=== PATIENT | female | born 1950 | race Caucasian/White ===

== ENCOUNTER 2018-02-27 17:35 | Emergency (ER) | payer MEDICARE ==
[2018-02-27] MEDS ORDERED: RX INFO: IV CONTRAST WAS GIVEN 1 EACH MISC MISCELLANE PRN (19:12)
--- NOTE | 2018-02-27 19:14 | ED ---
General Adult HPI - General Chief complaint: Extremity Problem,Nontraumatic Stated complaint: +DVT Time Seen by Provider: 02/27/18 19:06 Source: patient, family, RN notes reviewed Mode of arrival: wheelchair Limitations: no limitations - History of Present Illness Initial comments: Patient is a pleasant 68-year-old female presenting to the emergency department with concern for leg swelling. Patient did have left-sided tibial plateau fracture done 3 months ago. Patient did not require surgery. Patient has noticed some swelling the last couple of days left lower leg with mild discomfort. Patient did have outpatient ultrasound today positive for DVT. Patient states she did have recent influenza and recent pneumonia. Patient still states states she has some mild dyspnea on exertion only. - Related Data Home Medications Medication Instructions Recorded Confirmed Albuterol Sulfate [Proair Hfa] 2 puff INHALATION RT-Q6H PRN 02/27/18 02/27/18 Aspirin EC [Ecotrin Low Dose] 81 mg PO DAILY 02/27/18 02/27/18 Calcium Carbonate 500 mg PO BID 02/27/18 02/27/18 Cholecalciferol (Vitamin D3) 2,000 unit PO DAILY 02/27/18 02/27/18 [Vitamin D3] Cyanocobalamin (Vitamin B-12) 2,500 mcg PO DAILY 02/27/18 02/27/18 [Vitamin B12] Ubidecarenone [Co Q-10] 100 mg PO DAILY 02/27/18 02/27/18 Vitamin C/Biotin [Hair, Skin and 1 tab PO DAILY 02/27/18 02/27/18 Nails] Previous Rx's Medication Instructions Recorded Apixaban [Eliquis] 5 mg PO BID #44 tab 02/27/18 Allergies Allergy/AdvReac Type Severity Reaction Status Date / Time No Known Allergies Allergy Verified 02/27/18 18:40 Review of Systems ROS Statement: Those systems with pertinent positive or pertinent negative responses have been documented in the HPI. ROS Other: All systems not noted in ROS Statement are negative. Constitutional: Denies: fever Eyes: Denies: eye pain ENT: Denies: ear pain Respiratory: Reports: dyspnea (Mild with exertion only) Cardiovascular: Denies: chest pain Endocrine: Reports: fatigue Gastrointestinal: Denies: abdominal pain Genitourinary: Denies: dysuria Musculoskeletal: Denies: back pain Skin: Denies: rash Neurological: Denies: headache Past Medical History Past Medical History: Pneumonia History of Any Multi-Drug Resistant Organisms: None Reported Past Surgical History: Orthopedic Surgery, Tonsillectomy, Uterine Ablation Additional Past Surgical History / Comment(s): D&C, varicose veins Past Psychological History: No Psychological Hx Reported Smoking Status: Former smoker Past Alcohol Use History: None Reported Past Drug Use History: None Reported General Exam Limitations: no limitations General appearance: alert, in no apparent distress Head exam: Present: atraumatic Eye exam: Present: normal appearance Neck exam: Present: normal inspection Respiratory exam: Present: normal lung sounds bilaterally Cardiovascular Exam: Present: regular rate, normal rhythm Expanded Peripheral pulses: 2+: Posterior Tibialis (R), Posterior Tibialis (L), Dorsalis Pedis (R), Dorsalis Pedis (L) GI/Abdominal exam: Present: soft. Absent: tenderness Extremities exam: Present: pedal edema (Minimal left lower leg/ankle region), calf tenderness (Minimal left calf.) Neurological exam: Present: alert Psychiatric exam: Present: normal affect, normal mood Skin exam: Present: normal color Course Vital Signs 02/27/18 02/27/18 17:42 20:30 Temperature 98.6 F 97.7 F Pulse Rate 72 75 Respiratory 18 16 Rate Blood Pressure 179/92 144/75 O2 Sat by Pulse 96 100 Oximetry EKG Findings - EKG Comments: EKG Findings:: Normal sinus rhythm 66. IL 142. QRS 84. QT 386. QTc 404. Normal axis. Normal QRS. No acute ST change. Medical Decision Making - Medical Decision Making Patient reevaluated and updated. Case was discussed with Dr. Hung who is okay with discharge and either Xarelto or elquis - Lab Data Result diagrams: 02/27/18 19:23 02/27/18 19:23 Lab Results 02/27/18 02/27/18 02/27/18 Range/Units 19:23 19:23 19:23 WBC 8.3 (3.8-10.6) k/uL RBC 4.51 (3.80-5.40) m/uL Hgb 12.8 (11.4-16.0) gm/dL Hct 40.2 (34.0-46.0) % MCV 89.2 (80.0-100.0) fL MCH 28.4 (25.0-35.0) pg MCHC 31.9 (31.0-37.0) g/dL RDW 13.3 (11.5-15.5) % Plt Count 232 (150-450) k/uL Neutrophils % 72 % Lymphocytes % 20 % Monocytes % 5 % Eosinophils % 2 % Basophils % 0 % Neutrophils # 6.0 (1.3-7.7) k/uL Lymphocytes # 1.7 (1.0-4.8) k/uL Monocytes # 0.4 (0-1.0) k/uL Eosinophils # 0.2 (0-0.7) k/uL Basophils # 0.0 (0-0.2) k/uL PT (9.0-12.0) sec INR (<1.2) APTT (22.0-30.0) sec Sodium 143 (137-145) mmol/L Potassium 3.8 (3.5-5.1) mmol/L Chloride 105 (98-107) mmol/L Carbon Dioxide 26 (22-30) mmol/L Anion Gap 12 mmol/L BUN 11 (7-17) mg/dL Creatinine 0.67 (0.52-1.04) mg/dL Est GFR (CKD-EPI)AfAm >90 (>60 ml/min/1.73 sqM) Est GFR (CKD-EPI)NonAf >90 (>60 ml/min/1.73 sqM) Glucose 101 H (74-99) mg/dL Calcium 9.6 (8.4-10.2) mg/dL Total Bilirubin 0.7 (0.2-1.3) mg/dL AST 17 (14-36) U/L ALT 28 (9-52) U/L Alkaline Phosphatase 82 (38-126) U/L Total Creatine Kinase 31 (30-135) U/L CK-MB (CK-2) 0.8 (0.0-2.4) ng/mL CK-MB (CK-2) Rel Index 2.6 Troponin I <0.012 (0.000-0.034) ng/mL Total Protein 6.7 (6.3-8.2) g/dL Albumin 4.1 (3.5-5.0) g/dL 02/27/18 Range/Units 19:23 WBC (3.8-10.6) k/uL RBC (3.80-5.40) m/uL Hgb (11.4-16.0) gm/dL Hct (34.0-46.0) % MCV (80.0-100.0) fL MCH (25.0-35.0) pg MCHC (31.0-37.0) g/dL RDW (11.5-15.5) % Plt Count (150-450) k/uL Neutrophils % % Lymphocytes % % Monocytes % % Eosinophils % % Basophils % % Neutrophils # (1.3-7.7) k/uL Lymphocytes # (1.0-4.8) k/uL Monocytes # (0-1.0) k/uL Eosinophils # (0-0.7) k/uL Basophils # (0-0.2) k/uL PT 9.4 (9.0-12.0) sec INR 0.9 (<1.2) APTT 20.2 L (22.0-30.0) sec Sodium (137-145) mmol/L Potassium (3.5-5.1) mmol/L Chloride (98-107) mmol/L Carbon Dioxide (22-30) mmol/L Anion Gap mmol/L BUN (7-17) mg/dL Creatinine (0.52-1.04) mg/dL Est GFR (CKD-EPI)AfAm (>60 ml/min/1.73 sqM) Est GFR (CKD-EPI)NonAf (>60 ml/min/1.73 sqM) Glucose (74-99) mg/dL Calcium (8.4-10.2) mg/dL Total Bilirubin (0.2-1.3) mg/dL AST (14-36) U/L ALT (9-52) U/L Alkaline Phosphatase (38-126) U/L Total Creatine Kinase (30-135) U/L CK-MB (CK-2) (0.0-2.4) ng/mL CK-MB (CK-2) Rel Index Troponin I (0.000-0.034) ng/mL Total Protein (6.3-8.2) g/dL Albumin (3.5-5.0) g/dL - Radiology Data Radiology results: report reviewed (Ultrasound positive for DVT, computed tomography scan of the chest shows no evidence of pulmonary embolism.) Disposition Clinical Impression: Deep vein thrombosis of lower extremity Disposition: HOME SELF-CARE Condition: Stable Instructions: Deep Venous Thrombosis (ED) Additional Instructions: Please start further anticoagulation medication in the morning. Please follow- up with primary care physician in the next day or 2 for recheck. Return for chest pain, difficulty breathing, worsening symptoms or other concerns. Prescriptions: Apixaban [Eliquis] 5 mg PO BID #44 tab Is patient prescribed a controlled substance at d/c from ED?: No Referrals: Yuri Almendarez DO [Primary Care Provider] - 1-2 days Time of Disposition: 21:06
[2018-02-27 19:39] LABS: Basophils % (A) 0 %; Eosinophils # (A) 0.2 k/uL (0-0.7); Eosinophils % (A) 2 %; HCT 40.2 % (34.0-46.0); HGB 12.8 gm/dL (11.4-16.0); Lymphocytes # (A) 1.7 k/uL (1.0-4.8); Lymphocytes % (A) 20 %; MCH 28.4 pg (25.0-35.0); MCHC 31.9 g/dL (31.0-37.0); MCV 89.2 fL (80.0-100.0); Monocytes # (A) 0.4 k/uL (0-1.0); Monocytes % (A) 5 %; Neutrophils % (A) 72 %; Platelet Count 232 k/uL (150-450); RBC 4.51 m/uL (3.80-5.40); RDW 13.3 % (11.5-15.5); WBC 8.3 k/uL (3.8-10.6)
[2018-02-27 19:48] LABS: ALT 28 U/L (9-52); AST 17 U/L (14-36); Albumin 4.1 g/dL (3.5-5.0); Alkaline Phosphatase 82 U/L (38-126); Anion Gap 12 mmol/L; Blood Urea Nitrogen 11 mg/dL (7-17); Calcium 9.6 mg/dL (8.4-10.2); Carbon Dioxide 26 mmol/L (22-30); Chloride 105 mmol/L (98-107); Glucose 101 mg/dL (74-99); Potassium 3.8 mmol/L (3.5-5.1); Sodium 143 mmol/L (137-145); Total Bilirubin 0.7 mg/dL (0.2-1.3); Total Protein 6.7 g/dL (6.3-8.2)
[2018-02-27 19:53] LABS: Creatine Kinase 31 U/L (30-135)
[2018-02-27 20:04] LABS: INR 0.9 (<1.2); Prothrombin Time 9.4 sec (9.0-12.0)
[2018-02-27 20:06] LABS: Creatine Kinase MB 0.8 ng/mL (0.0-2.4); Partial Thromboplastin Time 20.2 sec (22.0-30.0); Troponin I <0.012 ng/mL (0.000-0.034)
[2018-02-27 20:32] VITALS: TEMP 97.7
--- NOTE | 2018-02-27 20:41 | CT ---
EXAMINATION TYPE: CT angio chest DATE OF EXAM: 02/27/2018 8:30 PM COMPARISON: NONE HISTORY: Shortness of breath with known DVT in legs CT DLP: 320.9 mGycm Automated exposure control for dose reduction was used. CONTRAST: CTA scan of the thorax is performed with IV Contrast, patient injected with 69 mL of Isovue 370, pulm onary embolism protocol. There are 3-D post processed images.. FINDINGS: The lungs are clear of infiltrate. There is no sign of a pulmonary mass. There is no pleural effusion . Heart size is normal. There is no pericardial effusion. There is normal contrast opacification of t he pulmonary arteries. I see no filling defect. There is no sign of aortic aneurysm or dissection. Th ere are no hilar masses. There is no mediastinal adenopathy. There is mild spurring in the thoracic s pine. IMPRESSION: NORMAL CT ANGIOGRAM OF THE CHEST. NO EVIDENCE OF PULMONARY EMBOLISM.
[2018-02-27] MEDS ORDERED: APIXABAN 5 MG TAB PO STA (21:05)
[2018-02-27 21:21] VITALS: BP 152/76; PULSE 79; RESP 18
== END 2018-02-27 21:35 | disposition home or self-care (01) ==
LOC: EC 17:35
DX: I82.402 Acute embolism and thrombosis of unspecified deep veins of left lower extremity (principal); R06.00 Dyspnea, unspecified; Z87.01 Personal history of pneumonia (recurrent); Z87.891 Personal history of nicotine dependence; Z98.890 Other specified postprocedural states; Z79.82 Long term (current) use of aspirin; Z79.899 Other long term (current) drug therapy
CPT/HCPCS: 36415; 93005; 80053; 82550; 82553; 84484; 85025; 85610; 85730; 71275; 99284; Q9967

== ENCOUNTER → 2018-02-27 | Outpatient (CLI) | payer MEDICARE ==
--- NOTE | 2018-02-27 17:30 | US ---
EXAMINATION TYPE: US venous doppler duplex LE LT DATE OF EXAM: 02/27/2018 5:14 PM COMPARISON: NONE CLINICAL HISTORY: left lower ext, pain and swelling, M25.562. SIDE PERFORMED: Left TECHNIQUE: The lower extremity deep venous system is examined utilizing real time linear array sonog juventino with graded compression, doppler sonography and color-flow sonography. VESSELS IMAGED: External Iliac Vein (EIV) Common Femoral Vein Deep Femoral Vein Greater Saphenous Vein * Femoral Vein Popliteal Vein Small Saphenous Vein * Proximal Calf Veins (* superficial vessels) Left Leg: Positive for DVT, starting at the distal fem vein and through the pop proximal and mid por tion there is non occluding DVT, with partial compressibility of vessel. There is a collateral or dup licate FV distally that is patent and compressible. IMPRESSION: There is evidence of some chronic deep venous thrombosis in the distal left femoral vein and popliteal vein.
== END | disposition home or self-care (01) ==
LOC: RADUSMAIN 16:40
PROVIDERS: ATTEND Orthopaedic Surgery
DX: I82.412 Acute embolism and thrombosis of left femoral vein (principal)

== ENCOUNTER → 2018-03-29 | Outpatient (CLI) | payer MEDICARE ==
--- NOTE | 2018-03-29 14:43 | XR ---
EXAMINATION TYPE: XR wrist complete LT DATE OF EXAM: 03/29/2018 CLINICAL HISTORY: pain TECHNIQUE: Frontal, lateral and oblique images of the left wrist are obtained. COMPARISON: None. FINDINGS: There is no acute fracture/dislocation evident. The joint spaces appear within normal morin its. The overlying soft tissue appears unremarkable. IMPRESSION: There is no acute fracture or dislocation seen. ICD 10 NO FRACTURE, INITIAL EVALUATION
== END | disposition home or self-care (01) ==
LOC: RADXRYALE 14:28
PROVIDERS: ATTEND Physician Assistant Medical
DX: M25.532 Pain in left wrist (principal)

== ENCOUNTER 2018-06-28 13:53 | Inpatient (IN) | payer MEDICARE ==
[2018-06-28] MEDS ORDERED: SODIUM CHLORIDE 0.9% 500 ML IV STA (14:11)
--- NOTE | 2018-06-28 14:14 | ED ---
General Adult HPI - General Chief complaint: Dizziness Stated complaint: dizziness Time Seen by Provider: 06/28/18 14:00 Source: patient, EMS, RN notes reviewed Mode of arrival: EMS Limitations: no limitations - History of Present Illness Initial comments: This is a 60-year-old female presents emergency department with past medical history significant for some recent vertigo-like symptoms. Patient states today however she comes in because she hadn't complete numbness of her right arm which lasted about 5 minutes and it then became tingly and eventually completely resolved. Patient states right after this whole event she became very weak had to sit down and could hear people talking to her but she was unable to respond to them and according to bystanders she was somewhat unresponsive to their questions though awake. Patient states that lasted a few more minutes and then completely resolved. Patient denies any headache patient denies any weakness. Patient denies any chest pain palpitations difficulty breathing [place] of breath. Patient denies any recent fever chills or cough. Patient denies abdominal pain patient denies nausea vomiting diarrhea. Currently patient states she has no symptoms. - Related Data Home Medications Medication Instructions Recorded Confirmed Aspirin EC [Ecotrin Low Dose] 81 mg PO HS 02/27/18 06/28/18 Cyanocobalamin (Vitamin B-12) 5,000 mcg PO DAILY 02/27/18 06/28/18 [Vitamin B12] Ubidecarenone [Co Q-10] 100 mg PO HS 02/27/18 06/28/18 Vitamin C/Biotin [Hair, Skin and 1 tab PO DAILY 02/27/18 06/28/18 Nails] 5Hydroxytryptophan(Oxitriptan) 200 mg PO HS 06/28/18 06/28/18 [5-Htp] Amoxic-Pot Clav 875-125Mg 1 tab PO Q12HR 06/28/18 06/28/18 [Augmentin 875-125] Ashwagandha 1 tab PO BID 06/28/18 06/28/18 Calcium Carbonate/Vitamin D3 2 tab PO BID 06/28/18 06/28/18 [Calcium 600-Vit D3 400 Tablet] Fluticasone Nasal [place] [Flonase 2 spr EA NOSTRIL DAILY 06/28/18 06/28/18 Nasal [place]] Allergies Allergy/AdvReac Type Severity Reaction Status Date / Time No Known Allergies Allergy Verified 06/28/18 14:16 Review of Systems ROS Statement: Those systems with pertinent positive or pertinent negative responses have been documented in the HPI. ROS Other: All systems not noted in ROS Statement are negative. Past Medical History Past Medical History: Deep Vein Thrombosis (DVT), Pneumonia History of Any Multi-Drug Resistant Organisms: None Reported Past Surgical History: Orthopedic Surgery, Tonsillectomy, Uterine Ablation Additional Past Surgical History / Comment(s): D&C, varicose veins Past Psychological History: No Psychological Hx Reported Smoking Status: Former smoker Past Alcohol Use History: None Reported Past Drug Use History: None Reported General Exam - General Exam Comments Initial Comments: GENERAL: Patient is well-developed and well-nourished. Patient is nontoxic and well- hydrated and is in mild distress. ENT: Neck is soft and supple. No significant lymphadenopathy is noted. Oropharynx is clear. Moist mucous membranes. Neck has full range of motion without eliciting any pain. EYES: The sclera were anicteric and conjunctiva were pink and moist. Extraocular movements were intact and pupils were equal round and reactive to light. Eyelids were unremarkable. PULMONARY: Unlabored respirations. Good breath sounds bilaterally. No audible rales rhonchi or wheezing was noted. CARDIOVASCULAR: There is a regular rate and rhythm without any murmurs gallops or rubs. ABDOMEN: Soft and nontender with normal bowel sounds. No palpable organomegaly was noted. There is no palpable pulsatile mass. SKIN: Skin is clear with no lesions or rashes and otherwise unremarkable. NEUROLOGIC: Patient is alert and oriented x3. Cranial nerves II through XII are grossly intact. Motor and sensory are also intact. Normal speech, volume and content. Symmetrical smile. MUSCULOSKELETAL: Normal extremities with adequate strength and full range of motion. No lower extremity swelling or edema. No calf tenderness. LYMPHATICS: No significant lymphadenopathy is noted PSYCHIATRIC: Normal psychiatric evaluation. Normal interpersonal interactions appears functionally intact in deals appropriately with others. No signs of depression. No signs of anxiety. Limitations: no limitations Course Vital Signs 06/28/18 13:55 Temperature 97.8 F Pulse Rate 68 Respiratory 20 Rate Blood Pressure 165/87 O2 Sat by Pulse 96 Oximetry Medical Decision Making - Medical Decision Making EKG shows normal sinus rhythm at 72 bpm NV interval is on a 62 QRS is 88 QT interval 380 QTC is 416. Patient's EKG shows no ST segment elevation or depression or T wave abnormalities are noted. Patient's CT of the brain shows no acute abnormality. Chest x-ray shows no acute abnormality - Lab Data Result diagrams: 06/28/18 14:04 06/28/18 14:04 Lab Results 06/28/18 06/28/18 06/28/18 Range/Units 14:04 14:04 14:04 WBC 6.3 (3.8-10.6) k/uL RBC 4.54 (3.80-5.40) m/uL Hgb 13.2 (11.4-16.0) gm/dL Hct 41.5 (34.0-46.0) % MCV 91.4 (80.0-100.0) fL MCH 29.0 (25.0-35.0) pg MCHC 31.8 (31.0-37.0) g/dL RDW 12.8 (11.5-15.5) % Plt Count 230 (150-450) k/uL Neutrophils % 71 % Lymphocytes % 22 % Monocytes % 5 % Eosinophils % 1 % Basophils % 0 % Neutrophils # 4.5 (1.3-7.7) k/uL Lymphocytes # 1.4 (1.0-4.8) k/uL Monocytes # 0.3 (0-1.0) k/uL Eosinophils # 0.1 (0-0.7) k/uL Basophils # 0.0 (0-0.2) k/uL PT (9.0-12.0) sec INR (<1.2) APTT (22.0-30.0) sec Sodium 142 (137-145) mmol/L Potassium 4.5 (3.5-5.1) mmol/L Chloride 111 H (98-107) mmol/L Carbon Dioxide 20 L (22-30) mmol/L Anion Gap 11 mmol/L BUN 13 (7-17) mg/dL Creatinine 0.70 (0.52-1.04) mg/dL Est GFR (CKD-EPI)AfAm >90 (>60 ml/min/1.73 sqM) Est GFR (CKD-EPI)NonAf 89 (>60 ml/min/1.73 sqM) Glucose 99 (74-99) mg/dL Calcium 9.8 (8.4-10.2) mg/dL Total Bilirubin 0.8 (0.2-1.3) mg/dL AST 19 (14-36) U/L ALT 26 (9-52) U/L Alkaline Phosphatase 92 (38-126) U/L Total Creatine Kinase 40 (30-135) U/L CK-MB (CK-2) 0.8 (0.0-2.4) ng/mL CK-MB (CK-2) Rel Index 2.0 Troponin I <0.012 (0.000-0.034) ng/mL Total Protein 7.1 (6.3-8.2) g/dL Albumin 4.4 (3.5-5.0) g/dL Urine Color Urine Appearance (Clear) Urine pH (5.0-8.0) Ur Specific [place] (1.001-1.035) Urine Protein (Negative) Urine Glucose (UA) (Negative) Urine Ketones (Negative) Urine Blood (Negative) Urine Nitrite (Negative) Urine Bilirubin (Negative) Urine Urobilinogen (<2.0) mg/dL Ur Leukocyte Esterase (Negative) 06/28/18 06/28/18 Range/Units 14:04 14:18 WBC (3.8-10.6) k/uL RBC (3.80-5.40) m/uL Hgb (11.4-16.0) gm/dL Hct (34.0-46.0) % MCV (80.0-100.0) fL MCH (25.0-35.0) pg MCHC (31.0-37.0) g/dL RDW (11.5-15.5) % Plt Count (150-450) k/uL Neutrophils % % Lymphocytes % % Monocytes % % Eosinophils % % Basophils % % Neutrophils # (1.3-7.7) k/uL Lymphocytes # (1.0-4.8) k/uL Monocytes # (0-1.0) k/uL Eosinophils # (0-0.7) k/uL Basophils # (0-0.2) k/uL PT 9.8 (9.0-12.0) sec INR 1.0 (<1.2) APTT 22.3 (22.0-30.0) sec Sodium (137-145) mmol/L Potassium (3.5-5.1) mmol/L Chloride (98-107) mmol/L Carbon Dioxide (22-30) mmol/L Anion Gap mmol/L BUN (7-17) mg/dL Creatinine (0.52-1.04) mg/dL Est GFR (CKD-EPI)AfAm (>60 ml/min/1.73 sqM) Est GFR (CKD-EPI)NonAf (>60 ml/min/1.73 sqM) Glucose (74-99) mg/dL Calcium (8.4-10.2) mg/dL Total Bilirubin (0.2-1.3) mg/dL AST (14-36) U/L ALT (9-52) U/L Alkaline Phosphatase (38-126) U/L Total Creatine Kinase (30-135) U/L CK-MB (CK-2) (0.0-2.4) ng/mL CK-MB (CK-2) Rel Index Troponin I (0.000-0.034) ng/mL Total Protein (6.3-8.2) g/dL Albumin (3.5-5.0) g/dL Urine Color Colorless Urine Appearance Clear (Clear) Urine pH 6.0 (5.0-8.0) Ur Specific [place] 1.003 (1.001-1.035) Urine Protein Negative (Negative) Urine Glucose (UA) Negative (Negative) Urine Ketones Negative (Negative) Urine Blood Negative (Negative) Urine Nitrite Negative (Negative) Urine Bilirubin Negative (Negative) Urine Urobilinogen <2.0 (<2.0) mg/dL Ur Leukocyte Esterase Negative (Negative) Disposition Clinical Impression: TIA (transient ischemic attack) Disposition: ADMITTED IP TO THIS HOSP Referrals: Yuri Almendarez DO [Primary Care Provider] - 1-2 days Time of Disposition: 15:25
[2018-06-28 14:35] LABS: Basophils % (A) 0 %; Eosinophils # (A) 0.1 k/uL (0-0.7); Eosinophils % (A) 1 %; HCT 41.5 % (34.0-46.0); HGB 13.2 gm/dL (11.4-16.0); Lymphocytes # (A) 1.4 k/uL (1.0-4.8); Lymphocytes % (A) 22 %; MCHC 31.8 g/dL (31.0-37.0); MCV 91.4 fL (80.0-100.0); Mean Platelet Volume 7.4; Monocytes # (A) 0.3 k/uL (0-1.0); Monocytes % (A) 5 %; Neutrophils # (A) 4.5 k/uL (1.3-7.7); Neutrophils % (A) 71 %; Platelet Count 230 k/uL (150-450); RBC 4.54 m/uL (3.80-5.40); RDW 12.8 % (11.5-15.5); WBC 6.3 k/uL (3.8-10.6)
[2018-06-28 14:51] LABS: ALT 26 U/L (9-52); AST 19 U/L (14-36); Albumin 4.4 g/dL (3.5-5.0); Alkaline Phosphatase 92 U/L (38-126); Anion Gap 11 mmol/L; Blood Urea Nitrogen 13 mg/dL (7-17); Calcium 9.8 mg/dL (8.4-10.2); Carbon Dioxide 20 mmol/L (22-30); Chloride 111 mmol/L (98-107); Glucose 99 mg/dL (74-99); Potassium 4.5 mmol/L (3.5-5.1); Sodium 142 mmol/L (137-145); Total Bilirubin 0.8 mg/dL (0.2-1.3); Total Protein 7.1 g/dL (6.3-8.2)
[2018-06-28 14:53] LABS: Creatine Kinase 40 U/L (30-135)
[2018-06-28 14:55] LABS: Partial Thromboplastin Time 22.3 sec (22.0-30.0); Prothrombin Time 9.8 sec (9.0-12.0)
[2018-06-28 15:07] LABS: Creatine Kinase MB 0.8 ng/mL (0.0-2.4); Troponin I <0.012 ng/mL (0.000-0.034)
--- NOTE | 2018-06-28 15:09 | CT ---
EXAMINATION TYPE: CT brain wo con DATE OF EXAM: 06/28/2018 COMPARISON: None HISTORY: Dizziness CT DLP: 1053.1 mGycm Automated exposure control for dose reduction was used. FINDINGS: Ventricular system is midline. There is no acute hemorrhage or mass effect. Calvarium intact. There is mild atherosclerotic change of the intracranial vasculature. Patchy areas of low attenuation within the white matter are nonspecific. Changes of mild chronic sinusitis noted. Area of low attenuation within the external capsule may been the basis of a remote lacunar infarction . IMPRESSION: 1. No acute hemorrhage or mass effect. 2. Nonspecific patchy areas of low attenuation within the white matter. Findings may been the basis o f remote microvascular ischemia. If there is concern for acute ischemia correlate clinically and if n ecessary with MRI.
[2018-06-28 15:16] LABS: Appearance,Urine Clear (Clear); Bilirubin,Urine Negative (Negative); Blood,Urine Negative (Negative); Color,Urine Colorless; Glucose,Urine (UA) Negative (Negative); Ketones,Urine Negative (Negative); Leukocyte Esterase,Urine Negative (Negative); Nitrite,Urine Negative (Negative); Protein,Urine Negative (Negative); Specific Gravity,Urine 1.003 (1.001-1.035); Urobilinogen,Urine <2.0 mg/dL (<2.0)
[2018-06-28] MEDS ORDERED: ASPIRIN 325 MG TAB PO STA (15:27)
--- NOTE | 2018-06-28 16:17 | P.HPIM ---
History of Present Illness 60-year-old female came in with compensative numbness in the whole left arm lasted for about 5 minutes tingling sensation. Patient had an episode of confusion as well and the symptoms of not feeling well. Patient has some nonspecific symptoms. Patient denied any chest pain fever chills nausea vomiting. She was recently evaluated for bradycardia at nighttime by cardiology where she had a carotid Doppler yesterday and Dr. Singh's office, patient is supposed to get an echocardiogram as well is being evaluated as an outpatient for chronic shortness of breath denied any orthopnea or paroxysmal nocturnal dyspnea. Patient is also being evaluated as an outpatient for on and off vertigo symptoms along with tinnitus because of which she was believed to have Mnire's disease. Patient was really doesn't have any neurological symptoms. Review of Systems REVIEW OF SYSTEMS: CONSTITUTIONAL: No fever, no malaise, no fatigue. HEENT: No recent visual problems or hearing problems. Denied any sore throat. CARDIOVASCULAR: No chest pain, orthopnea, PND, no palpitations, no syncope. PULMONARY: No shortness of breath, no cough, no hemoptysis. GASTROINTESTINAL: No diarrhea, no nausea, no vomiting, no abdominal pain. Normoactive bowel sounds. NEUROLOGICAL: No headaches, no weakness, no numbness. HEMATOLOGICAL: Denies any bleeding or petechiae. GENITOURINARY: Denies any burning micturition, frequency, or urgency. MUSCULOSKELETAL/RHEUMATOLOGICAL: As mentioned above ENDOCRINE: Denies any polyuria or polydipsia. The rest of the 14-point review of systems is negative. Past Medical History Past Medical History: Deep Vein Thrombosis (DVT), Pneumonia History of Any Multi-Drug Resistant Organisms: None Reported Past Surgical History: Orthopedic Surgery, Tonsillectomy, Uterine Ablation Additional Past Surgical History / Comment(s): D&C, varicose veins Past Psychological History: No Psychological Hx Reported Smoking Status: Former smoker Past Alcohol Use History: None Reported Past Drug Use History: None Reported Medications and Allergies Home Medications Medication Instructions Recorded Confirmed Type Aspirin EC [Ecotrin Low Dose] 81 mg PO HS 02/27/18 06/28/18 History Cyanocobalamin (Vitamin B-12) 5,000 mcg PO DAILY 02/27/18 06/28/18 History [Vitamin B12] Ubidecarenone [Co Q-10] 100 mg PO HS 02/27/18 06/28/18 History Vitamin C/Biotin [Hair, Skin and 1 tab PO DAILY 02/27/18 06/28/18 History Nails] 5Hydroxytryptophan(Oxitriptan) 200 mg PO HS 06/28/18 06/28/18 History [5-Htp] Amoxic-Pot Clav 875-125Mg 1 tab PO Q12HR 06/28/18 06/28/18 History [Augmentin 875-125] Ashwagandha 1 tab PO BID 06/28/18 06/28/18 History Calcium Carbonate/Vitamin D3 2 tab PO BID 06/28/18 06/28/18 History [Calcium 600-Vit D3 400 Tablet] Fluticasone Nasal [place] [Flonase 2 spr EA NOSTRIL DAILY 06/28/18 06/28/18 History Nasal [place]] Allergies Allergy/AdvReac Type Severity Reaction Status Date / Time No Known Allergies Allergy Verified 06/28/18 14:16 Physical Exam Vitals: Vital Signs Temp Pulse Pulse Resp BP BP Pulse Ox 06/28/18 15:26 59 L 18 118/58 98 06/28/18 13:55 97.8 F 68 20 165/87 96 Intake and Output 06/28/18 06/28/18 06/28/18 06:59 14:59 22:59 Other: Weight 92.986 kg PHYSICAL EXAMINATION: GENERAL: The patient is alert and oriented x3, not in any acute distress. Well developed, well nourished. HEENT: Pupils are round and equally reacting to light. EOMI. No scleral icterus. No conjunctival pallor. Normocephalic, atraumatic. No pharyngeal erythema. No thyromegaly. CARDIOVASCULAR: S1 and S2 present. No murmurs, rubs, or gallops. PULMONARY: Chest is clear to auscultation, no wheezing or crackles. ABDOMEN: Soft, nontender, nondistended, normoactive bowel sounds. No palpable organomegaly. MUSCULOSKELETAL: No joint swelling or deformity. EXTREMITIES: No cyanosis, clubbing, or pedal edema. NEUROLOGICAL: Gross neurological examination did not reveal any focal deficits. SKIN: No rashes. Results CBC & Chem 7: 06/28/18 14:04 06/28/18 14:04 Labs: Abnormal Lab Results - Last 24 Hours (Table) 06/28/18 Range/Units 14:04 Chloride 111 H (98-107) mmol/L Carbon Dioxide 20 L (22-30) mmol/L Assessment and Plan Plan: -Tingling or numbness in the right arm with associated a brief episode of confusion. Patient will be admitted to rule out TIA lipid panel be obtained carotid Doppler was done in cardiology clinic results of which will be obtained echocardiogram will be obtained here admitted for neuro checks. [place] in neck x-ray looking for degenerative neck disease. Neurology was consulted CAT scan of the head did show some nonspecific white factor changes may need an MRI dictation of which will be left to neurology. -Vertigo probably secondary to Mnire's disease and being evaluated as an outpatient for this -History of DVT few months ago completed anticoagulation therapy after which her anti-correlation was discontinued her DVT was precipitated by musculoskeletal left leg injury: Knee injury
[2018-06-28] MEDS: AMOXIC-POT CLAV 875-125MG 1 EACH TAB PO SCH (20:38)
[2018-06-28] MEDS ORDERED: ASPIRIN 81 MG PO SCH (21:00)
[2018-06-28] MEDS: [UNRECOGNIZED DRUG - OTHER] PO SCH (22:36)
[2018-06-29 06:44] LABS: Cholesterol 209 mg/dL (<200); HDL Cholesterol 48 mg/dL (40-60); LDL Cholesterol,Calculated 144 mg/dL (0-99); Triglycerides 87 mg/dL (<150)
[2018-06-29] MEDS: AMOXIC-POT CLAV 875-125MG 1 EACH TAB PO SCH ×2 (08:25→21:27)
[2018-06-29] MEDS: CLOPIDOGREL 75 MG TAB PO SCH (08:31)
[2018-06-29] MEDS ORDERED: ASPIRIN 325 MG TAB PO SCH (09:00)
--- NOTE | 2018-06-29 09:37 | P.CRDCN ---
History of Present Illness Consult date: 06/29/18 Chief complaint: Right arm numbness History of present illness: This is a pleasant 68-year-old female patient who sees Dr. Singh in the office as an outpatient with a past medical history significant for dyslipidemia who presented to the hospital complaining of right arm numbness. 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 The symptoms lasted for about 5 units and results after that. No loss of consciousness. No symptoms of heart racing or fluttering. No chest pain or chest discomfort. The patient never had any episode like this in the past. No history of paroxysmal atrial fibrillation or diabetes or hypertension but she does have dyslipidemia. She was seen recently by Dr. Singh in the office for further evaluation off bradycardia. She just underwent within the last few days an echocardiogram as well as carotid duplex study and I just called the office to obtain a copy of them. The EKG showed sinus rhythm only. The computed tomography scan of the brain did not show any acute abnormalities besides chronic changes. No arrhythmia was noticed from overnight. The patient was seen and evaluated by the neurology service earlier today. The patient does not smoke and does not drink alcohol. No significant family history of premature coronary artery disease. Past Medical History Past Medical History: Deep Vein Thrombosis (DVT), Pneumonia Additional Past Medical History / Comment(s): "told i have a slight heart murmur ", for past month has had fogginess/slight memory issues, vertigo.rising cholesrtol level but pt trying to lower it by diet. fall, w/ broken rt leg in dec 2017 came down with influenza b then pne and by the time she felt well wnough to get up she ended up with dvt rt leg History of Any Multi-Drug Resistant Organisms: None Reported Past Surgical History: Orthopedic Surgery, Tonsillectomy, Uterine Ablation Additional Past Surgical History / Comment(s): D&C(hx of heavy bleeding) and leep procedure varicose veins stripping Additional Past Anesthesia/Blood Transfusion Reaction / Comment(s): blood transfusion in past-no reaction to it Smoking Status: Former smoker - Past Family History Mother Family Medical History: Congestive Heart Failure (CHF), Hypertension Father Family Medical History: COPD Additional Family Medical History / Comment(s): 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 Medications and Allergies Home Medications Medication Instructions Recorded Confirmed Type Aspirin EC [Ecotrin Low Dose] 81 mg PO HS 02/27/18 06/28/18 History Cyanocobalamin (Vitamin B-12) 5,000 mcg PO DAILY 02/27/18 06/28/18 History [Vitamin B12] Ubidecarenone [Co Q-10] 100 mg PO HS 02/27/18 06/28/18 History Vitamin C/Biotin [Hair, Skin and 1 tab PO DAILY 02/27/18 06/28/18 History Nails] 5Hydroxytryptophan(Oxitriptan) 200 mg PO HS 06/28/18 06/28/18 History [5-Htp] Amoxic-Pot Clav 875-125Mg 1 tab PO Q12HR 06/28/18 06/28/18 History [Augmentin 875-125] Ashwagandha 1 tab PO BID 06/28/18 06/28/18 History Calcium Carbonate/Vitamin D3 2 tab PO BID 06/28/18 06/28/18 History [Calcium 600-Vit D3 400 Tablet] Fluticasone Nasal [place] [Flonase 2 spr EA NOSTRIL DAILY 06/28/18 06/28/18 History Nasal [place]] Allergies Allergy/AdvReac Type Severity Reaction Status Date / Time No Known Allergies Allergy Verified 06/28/18 14:16 Physical Exam Vitals: Vital Signs Temp Pulse Pulse Resp BP BP Pulse Ox 06/29/18 04:00 98.0 F 55 L 16 127/61 96 06/29/18 03:18 16 06/29/18 00:00 97.9 F 60 16 112/60 96 06/28/18 20:00 96.8 F L 70 16 143/73 95 06/28/18 16:26 96.9 F L 72 16 147/69 98 06/28/18 15:26 59 L 18 118/58 98 06/28/18 13:55 97.8 F 68 20 165/87 96 Intake and Output 06/28/18 06/29/18 06/29/18 22:59 06:59 14:59 Intake Total 240 240 Balance 240 240 Intake: Oral 240 240 Other: Voiding Method Toilet # Voids 1 1 Weight 92 kg - Constitutional General appearance: no acute distress - Respiratory Respiratory: bilateral: CTA - Cardiovascular Rhythm: regular Heart sounds: normal: S1, S2 Results 06/28/18 14:04 06/28/18 14:04 Cardiac Enzymes 06/28/18 06/28/18 Range/Units 14:04 14:04 AST 19 (14-36) U/L CK-MB (CK-2) 0.8 (0.0-2.4) ng/mL Troponin I <0.012 (0.000-0.034) ng/mL Coagulation 06/28/18 Range/Units 14:04 PT 9.8 (9.0-12.0) sec APTT 22.3 (22.0-30.0) sec Lipids 06/29/18 Range/Units 06:00 Triglycerides 87 (<150) mg/dL Cholesterol 209 H (<200) mg/dL HDL Cholesterol 48 (40-60) mg/dL CBC 06/28/18 Range/Units 14:04 WBC 6.3 (3.8-10.6) k/uL RBC 4.54 (3.80-5.40) m/uL Hgb 13.2 (11.4-16.0) gm/dL Hct 41.5 (34.0-46.0) % Plt Count 230 (150-450) k/uL Comprehensive Metabolic Panel 06/28/18 Range/Units 14:04 Sodium 142 (137-145) mmol/L Potassium 4.5 (3.5-5.1) mmol/L Chloride 111 H (98-107) mmol/L Carbon Dioxide 20 L (22-30) mmol/L BUN 13 (7-17) mg/dL Creatinine 0.70 (0.52-1.04) mg/dL Glucose 99 (74-99) mg/dL Calcium 9.8 (8.4-10.2) mg/dL AST 19 (14-36) U/L ALT 26 (9-52) U/L Alkaline Phosphatase 92 (38-126) U/L Total Protein 7.1 (6.3-8.2) g/dL Albumin 4.4 (3.5-5.0) g/dL Current Medications Generic Name Dose Route Start Last Admin Trade Name Freq PRN Reason Stop Dose Admin Amoxicillin/Clavulanate Potassium 1 each 06/28/18 21:00 06/29/18 08:25 Augmentin 875-125 PO Not Given Q12HR PITO Clopidogrel Bisulfate 75 mg 06/29/18 09:00 06/29/18 08:31 Plavix PO 75 mg DAILY PITO Administration Oxitriptan 200mg 200 mg 06/28/18 21:00 06/28/18 22:36 PO Not Given HS PITO Intake and Output 06/28/18 06/29/18 06/29/18 22:59 06:59 14:59 Intake Total 240 240 Balance 240 240 Intake: Oral 240 240 Other: Voiding Method Toilet # Voids 1 1 Weight 92 kg 06/28/18 14:04 06/28/18 14:04 Assessment and Plan Assessment: Assessment #1 an episode of TIA. #2 dyslipidemia Plan #1 follow-up on the echocardiogram and follow-up on the carotid duplex study #2 if the carotid duplex study did not show any hemodynamically significant stenosis I would recommend obtaining a KERRY to rule out any cardiac source of embolization. 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 Thank you for allowing us participate in her care and we will continue following up with her
--- NOTE | 2018-06-29 10:26 | MR ---
MR brain without contrast HISTORY: TIA Multiplanar multisequence imaging through the brain and correlated prior CT brain 06/28/2018 There is no restricted diffusion. There is no hemorrhage or hydrocephalus. Brain volume is age approp riate. Pituitary, corpus callosum, cervical medullary junction, cerebellopontine angles are normal. T here are normal vascular flow voids. The orbits show symmetric appearance. Some inflammatory changes present in the right frontal sinus. Fluid and scattered hyperintensities are present within the periventricular, subcortical, juxtacortic al, deep white matter. Largest lesion in the left frontal deep white matter measures 8 mm on axial im age 21. Right frontal lesion on axial image 20 in the right frontal white matter measures [address] 40-50 lesions are present. IMPRESSION: Nonspecific white matter demyelination. Findings may represent chronic small vessel ische ted, correlate. No acute or subacute abnormality evident within the brain. Right frontal sinus diseas e.
--- NOTE | 2018-06-29 12:09 | ECHOF ---
Referral Reason:TIA MEASUREMENTS -------- HEIGHT: 177.8 cm WEIGHT: 91.6 kg BP: 127/61 IVSd: 1.0 cm (0.6 - 1.1) LVIDd: 4.8 cm (3.9 - 5.3) LVPWd: 1.4 cm (0.6 - 1.1) IVSs: 2.0 cm LVIDs: 1.9 cm LVPWs: 1.8 cm Ao Diam: 3.6 cm (2.0 - 3.7) AV Cusp: 2.0 cm (1.5 - 2.6) LA Diam: 2.7 cm (2.7 - 3.8) MV EXCURSION: 14.837 mm (> 18.000) MV EF SLOPE: 106 mm/s (70 - 150) EPSS: 0.5 cm MV E Silverio: 0.80 m/s MV DecT: 244 ms MV A Silverio: 0.86 m/s MV E/A Ratio: 0.93 RAP: 5.00 mmHg RVSP: 11.68 mmHg FINDINGS -------- Sinus rhythm. This was a technically adequate study. The left ventricular size is normal. There is mild concentric left ventricular hypertrophy. Overa ll left ventricular systolic function is normal with, an EF between 55 - 60 %. The right ventricle is normal in size and function. The left atrium is normal in size. The right atrium is normal in size. The aortic valve is trileaflet, and appears structurally normal. No aortic stenosis or regurgitation. The mitral valve leaflets are mildly thickened. Mild mitral regurgitation is present. Trace tricuspid regurgitation present. There is no evidence of pulmonary hypertension. The right ventricular systolic pressure, as measured by Doppler, is 11.68mmHg. There is no pulmonic regurgitation present. The aortic root size is normal. There is no pericardial effusion. CONCLUSIONS -------- 1. Sinus rhythm. 2. This was a technically adequate study. 3. The left ventricular size is normal. 4. There is mild concentric left ventricular hypertrophy. 5. Overall left ventricular systolic function is normal with, an EF between 55 - 60 %. 6. The left atrium is normal in size. 7. The aortic valve is trileaflet, and appears structurally normal. No aortic stenosis or regurgitati on. 8. The mitral valve leaflets are mildly thickened. 9. Mild mitral regurgitation is present. 10. Trace tricuspid regurgitation present. 11. There is no evidence of pulmonary hypertension. 12. There is no pulmonic regurgitation present. 13. The aortic root size is normal. 14. There is no pericardial effusion. [employer] OPERATOR: Brissa Calvin RDCS
--- NOTE | 2018-06-29 13:57 | XR ---
EXAMINATION TYPE: XR chest 2V DATE OF EXAM: 06/28/2018 COMPARISON: NONE HISTORY: Shortness of breath TECHNIQUE: Frontal and lateral views of the chest are obtained. FINDINGS: Scattered senescent parenchymal changes noted. Hyperinflation compatible with COPD. No evidence for infiltrate. No evidence for atelectasis. Heart size is stable. Mediastinal structures are stable and grossly unremarkable. No evidence for hilar prominence. Degenerative changes dorsal spine. IMPRESSION: 1. No evidence for acute pulmonary disease.
--- NOTE | 2018-06-29 14:52 | P.PN ---
Subjective 68-year-old female came with symptoms of right hand tingling numbness probably secondary to cervical degenerative disc disease, patient had an MRI because of the other associated symptoms including transient episode of amnesia, neurology evaluated the patient MRA showed some nonspecific white matter ischemic changes because of which there is a concern of embolic phenomenon and atrial fibrillation echocardiogram did not show any significant abnormality intraventricular thrombus, patient will undergo transesophageal echocardiogram tomorrow, possible Holter monitor as an outpatient. Constitutional: Denied any fatigue denied any fever. Cardio vascular: denied any chest pain, palpitations Gastrointestinal denied any nausea vomiting Pulmonary: Denied any shortness of breath cough Neurologic denied any new focal deficits Objective - Vital Signs Vital signs: Vital Signs Temp 97.9 F 06/29/18 12:00 Pulse 72 06/29/18 12:00 Resp 16 06/29/18 12:00 BP 146/78 06/29/18 12:00 Pulse Ox 98 06/29/18 12:00 Intake & Output 06/28/18 06/29/18 06/29/18 18:59 06:59 18:59 Intake Total 240 480 Balance 240 480 Weight 92.986 kg 92 kg Intake: Oral 240 480 Other: Voiding Method Toilet Toilet # Voids 1 1 - Exam PHYSICAL EXAMINATION: GENERAL: The patient is alert and oriented x3, not in any acute distress. Well developed, well nourished. HEENT: Pupils are round and equally reacting to light. EOMI. No scleral icterus. No conjunctival pallor. Normocephalic, atraumatic. No pharyngeal erythema. No thyromegaly. CARDIOVASCULAR: S1 and S2 present. No murmurs, rubs, or gallops. PULMONARY: Chest is clear to auscultation, no wheezing or crackles. ABDOMEN: Soft, nontender, nondistended, normoactive bowel sounds. No palpable organomegaly. MUSCULOSKELETAL: No joint swelling or deformity. EXTREMITIES: No cyanosis, clubbing, or pedal edema. NEUROLOGICAL: Gross neurological examination did not reveal any focal deficits. SKIN: No rashes. - Labs CBC & Chem 7: 06/28/18 14:04 06/28/18 14:04 Labs: Abnormal Lab Results - Last 24 Hours (Table) 06/28/18 06/29/18 Range/Units 14:04 06:00 Chloride 111 H (98-107) mmol/L Carbon Dioxide 20 L (22-30) mmol/L Cholesterol 209 H (<200) mg/dL LDL Cholesterol, Calc 144 H (0-99) mg/dL Assessment and Plan Plan: -Tingling or numbness in the right arm with associated a brief episode of confusion. Echocardiac within normal limits MRI as mentioned above further workup as mentioned above. Patient will be started on a statin because of elevated LDL -Vertigo probably secondary to Mnire's disease and being evaluated as an outpatient for this -History of DVT few months ago completed anticoagulation therapy after which her anti-correlation was discontinued her DVT was precipitated by musculoskeletal left leg injury: Knee injury
[2018-06-29] MEDS ORDERED: ATORVASTATIN 40 MG TAB PO SCH (21:00)
[2018-06-29] MEDS: [UNRECOGNIZED DRUG - OTHER] PO SCH (21:28)
--- NOTE | 2018-06-29 22:41 | P.CNNES ---
History of Present Illness Consult date: 06/29/18 Requesting physician: Jovi Valladares Reason for Consult: TIA Chief complaint: right upper extremity numbness and tingling History of Present Illness: Neurology is consulting on a 60-year-old female with past medical history for vertigo-like symptoms. Patient came to the ED after experiencing right upper extremity numbness and tingling lasting 5 minutes which then became completely resolved. Patient states right after the event she became very weak and according to bystanders she was somewhat unresponsive to questions although she appeared awake. Secondary status lasted several more minutes then completely resolved. Patient denied any headache, weakness, chest pain, palpitations, difficulty breathing. Patient denied fever, chills, cough. Patient denied abdominal pain, nausea, vomiting diarrhea. Patient states she was being worked up by cardiology being worked up for unknown problem. Patient states she had a carotid Doppler within the last 5 days. She is unaware of the results at this point. On contact, patient was alert and oriented 3, resting in bed in no acute distress. No visitors her family were in the room. Nursing reports no neurological status changes since being transferred from the ED to the floor. Review of Systems systems not noted in HPI are negative Past Medical History Past Medical History: Deep Vein Thrombosis (DVT), Pneumonia Additional Past Medical History / Comment(s): "told i have a slight heart murmur ", for past month has had fogginess/slight memory issues, vertigo.rising cholesrtol level but pt trying to lower it by diet. fall, w/ broken rt leg in dec 2017 came down with influenza b then pne and by the time she felt well wnough to get up she ended up with dvt rt leg History of Any Multi-Drug Resistant Organisms: None Reported Past Surgical History: Orthopedic Surgery, Tonsillectomy, Uterine Ablation Additional Past Surgical History / Comment(s): D&C(hx of heavy bleeding) and leep procedure varicose veins stripping Additional Past Anesthesia/Blood Transfusion Reaction / Comment(s): blood transfusion in past-no reaction to it Smoking Status: Former smoker - Past Family History Mother Family Medical History: Congestive Heart Failure (CHF), Hypertension Father Family Medical History: COPD Additional Family Medical History / Comment(s): worked in a [employer] and smoked- from emphysema Medications and Allergies Home Medications Medication Instructions Recorded Confirmed Type Aspirin EC [Ecotrin Low Dose] 81 mg PO HS 04/24/18 08/23/18 History Cyanocobalamin (Vitamin B-12) 5,000 mcg PO DAILY 02/27/18 06/28/18 History [Vitamin B12] Ubidecarenone [Co Q-10] 100 mg PO HS 02/27/18 06/28/18 History Vitamin C/Biotin [Hair, Skin and 1 tab PO DAILY 02/27/18 06/28/18 History Nails] 5Hydroxytryptophan(Oxitriptan) 200 mg PO HS 06/28/18 06/28/18 History [5-Htp] Amoxic-Pot Clav 875-125Mg 1 tab PO Q12HR 06/28/18 06/28/18 History [Augmentin 875-125] Ashwagandha 1 tab PO BID 06/28/18 06/28/18 History Calcium Carbonate/Vitamin D3 2 tab PO BID 06/28/18 06/28/18 History [Calcium 600-Vit D3 400 Tablet] Fluticasone Nasal [place] [Flonase 2 spr EA NOSTRIL DAILY 06/28/18 06/28/18 History Nasal [place]] Allergies Allergy/AdvReac Type Severity Reaction Status Date / Time No Known Allergies Allergy Verified 06/28/18 14:16 Physical Examination - Vital Signs Vital Signs: Vital Signs Temp Pulse Resp BP Pulse Ox 06/29/18 16:00 98.4 F 63 14 117/78 98 06/29/18 12:00 97.9 F 72 16 146/78 98 06/29/18 08:00 98.1 F 69 14 130/79 97 06/29/18 04:00 98.0 F 55 L 16 127/61 96 06/29/18 03:18 16 06/29/18 00:00 97.9 F 60 16 112/60 96 Intake and Output 06/29/18 06/29/18 06/29/18 06:59 14:59 22:59 Intake Total 480 237 Balance 480 237 Intake: Oral 480 237 Other: Voiding Method Toilet Toilet # Voids 1 1 1 Weight 92 kg General appearance: Alert & oriented x3, no apparent distress. Head: Atraumatic, normocephalic, normal inspection Eyes: Well appearance, PERRLA, EOMI. Absent scleral icterus, conjunctival injection, nystagmus, periorbital swelling. Ear, nose and throat: Normal exam, mucous membranes moist Neck: Normal inspection, absent tenderness, lymphadenopathy. Respiratory: No increased work of breathing Cardiovascular: Regular rate, rhythm GI/abdominal: No guarding Extremities: Full range of motion, normal capillary refill, no tenderness, pedal edema joint swelling, calf tenderness. Neurological: cranial nerves II through XII intact no lateralizing weakness no seizure activity noted on physical exam no pronator drift and no nystagmus. 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 Doppler flow velocities indicate 16-49% stenosis. Greater than 20% diameter stenosis via image. Mild spectral broadening noted in the ICA. Vertebral flow antegrade is noted. Left: Plaque morphology: circumferential irregular heterogeneous plaque is noted in the ICA, bulb, CCA, Doppler flow velocities indicate 16-49% stenosis. Greater than 20% diameter stenosis via image. Mild spectral broadening noted in the ICA. Vertebral flow antegrade flow is noted. EEG: Orderedpending Serum homocysteine level: Ordered - Laboratory Findings CBC and BMP: 06/28/18 14:04 06/28/18 14:04 Abnormal Lab Findings: Abnormal Labs 06/28/18 06/29/18 14:04 06:00 Chloride 111 H Carbon Dioxide 20 L Cholesterol 209 H LDL Cholesterol, Calc 144 H Assessment and Plan (1) TIA (transient ischemic attack) Narrative/Plan: Patient does appear to have experienced TIA. Images are consistent with TIA and as well as resolved within several minutes. diagnostic workup to include: CT brain: No acute hemorrhage or mass-effect. Nonspecific patchy areas of low attenuation within the white matter. Findings may be the basis of remote microvascular ischemia. If there is concern for acute ischemia correlate clinically and if necessary with MRI. MRI brain without contrast: Nonspecific white matter demyelination. Findings may represent chronic small vessel ischemia, correlate. No acute or subacute abnormality evident within the brain. Right frontal sinus disease. EEG: Ordered Carotid Doppler as previously noted and results section lipid panel: elevated LDL and total cholesterol Treatment: Prescribe: Plavix 75 mg daily Prescribe: increase patient's Lipitor to 40 mg daily at bedtime continue neuro checks every shift Current Visit: Yes Status: Acute Code(s): G45.9 - TRANSIENT CEREBRAL ISCHEMIC ATTACK, UNSPECIFIED SNOMED Code(s): 040866921 (2) Right arm weakness Narrative/Plan: resolved Current Visit: Yes Status: Acute Code(s): R29.898 - OTH SYMPTOMS AND SIGNS INVOLVING THE MUSCULOSKELETAL SYSTEM SNOMED Code(s): 480253384 (3) Paresthesia of skin Narrative/Plan: resolved Current Visit: Yes Status: Acute Code(s): R20.2 - PARESTHESIA OF SKIN SNOMED Code(s): 76880425 (4) Altered mental status Narrative/Plan: secondary to TIAresolved Current Visit: Yes Status: Acute Code(s): R41.82 - ALTERED MENTAL STATUS, UNSPECIFIED SNOMED Code(s): 834247951 Plan: Status: Neurology will continue to follow and provide updates as needed or warranted. If the patient's neurological status remains unchanged through rounding on , anticipate clearing patient for discharge at that time. Contact our office with any questions I have discussed the plan of care with the physician prior to implementation and he agrees with the plan as implemented.
[2018-06-30] MEDS: CLOPIDOGREL 75 MG TAB PO SCH (08:35)
[2018-06-30] MEDS: AMOXIC-POT CLAV 875-125MG 1 EACH TAB PO SCH (08:35)
[2018-06-30 08:39] VITALS: TEMP 98.4
--- NOTE | 2018-06-30 09:57 | P.PN ---
Subjective Progress Note Date: 06/30/18 Principal diagnosis: TIA physical pleasant 68-year-old female patient who follows with Dr. Leggett in the office. She is a past medical history significant for dyslipidemia. She presented to the hospital complaining of right arm numbness. 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 She had no loss of consciousness. She's had no complaints of chest discomfort. She says she has had symptoms of heart racing many years ago but nothing recent. No history of atrial fibrillation, diabetes or hypertension. She recently underwent echocardiogram and carotid duplex study in our office which came back to be unremarkable. Computed tomography scan of the brain did not show any acute abnormalities. She's had no arrhythmias on telemetry. Her symptoms have completely resolved. incidentally she does have a history of DVT in the past and was on Eliquis 5mg BID for 3 months but this has since been discontinued. Objective - Vital Signs Vital signs: Vital Signs Temp 98.4 F 06/30/18 08:00 Pulse 70 06/30/18 08:00 Resp 18 06/30/18 08:00 BP 129/80 06/30/18 08:00 Pulse Ox 94 L 06/30/18 08:00 Intake & Output 06/29/18 06/30/18 06/30/18 18:59 06:59 18:59 Intake Total 717 Balance 717 Weight 90.3 kg Intake: Oral 717 Other: Voiding Method Toilet Toilet # Voids 1 1 - Exam PHYSICAL EXAMINATION: HEENT: [Head is atraumatic, normocephalic. Pupils equal, round. Neck is supple. There is no elevated jugular venous pressure.] HEART EXAMINATION: [Heart sounds regular, S1 and S2 normal. No murmur or gallop heard.] CHEST EXAMINATION:[ Lungs are clear to auscultation and precussion. No chest wall tenderness is noted on palpation or with deep breathing.] ABDOMEN: [ Soft, nontender. Bowel sounds are heard. No organomegaly noted]. EXTREMITIES:[ 2+ peripheral pulses with no evidence of peripheral edema and no calf tenderness noted]. NEUROLOGIC [patient is awake, alert and oriented x3.] . - Labs CBC & Chem 7: 06/28/18 14:04 06/28/18 14:04 Assessment and Plan Assessment: #1 TIA #2 dyslipidemia #3 history of DVT Plan: from cardiology perspective patient will require a KERRY. We will continue Plavix and reinitiate the patient on Eliquis 5mg BID. From our prospective, patient may be discharged home today. She will follow-up with Dr. Leggett in the office first available appointment either Monday or Monday. She will need to be scheduled for KERRY. If this does not show evidence of PFO or ASD patient will require loop implantation to rule out paroxysmal atrial fibrillation. CHILDREN'S AIDE note has been reviewed, I agree with a documented findings and plan of care. Patient was seen and examined.
[2018-06-30] MEDS ORDERED: APIXABAN 5 MG TAB PO SCH (11:00)
[2018-06-30 13:11] VITALS: RESP 17
--- NOTE | 2018-06-30 17:03 | P.DS ---
Providers Date of admission: 06/30/18 09:53 Expected date of discharge: 06/30/18 Attending physician: Trenton Arguelles Consults: 06/28/18 15:26 Consult Physician Routine Consulting Provider: Elizabeth Wolf Consult Reason/Comments: TIA Do you want consulting provider notified?: Yes Primary care physician: [facility] Course: 68-year-old female patient who follows with Dr. Leggett in the office. She is a past medical history significant for dyslipidemia. She presented to the hospital complaining of right arm numbness. 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 She had no loss of consciousness. She's had no complaints of chest discomfort. She says she has had symptoms of heart racing many years ago but nothing recent. No history of atrial fibrillation, diabetes or hypertension. She recently underwent echocardiogram and carotid duplex study in cardiology office which came back to be unremarkable. Computed tomography scan of the brain did not show any acute abnormalities. She 's had no arrhythmias on telemetry. Her symptoms have completely resolved. incidentally she does have a history of DVT in the past and was on Eliquis 5mg BID for 3 months but this has since been discontinued. - neuro workup has been unremarkable so far; patient had an MRI/MRA- showing nonspecific white matter ischemic changes raising concern of embolic phenomena and atrial fibrillation; echocardiogram did not show any significant abnormality or intraventricular thrombus - Cardiology service is following and is recommending KERRY and possible Holter monitor as outpatient if KERRY is negative - cardiology services planning to continue Plavix and recommending restarting patient on Eliquis 5 mg twice a day Plan - Discharge Summary Discharge Rx Participant: Yes New Discharge Prescriptions: New Apixaban [Eliquis] 5 mg PO BID #60 tab Atorvastatin [Lipitor] 40 mg PO HS #30 tab Clopidogrel [Plavix] 75 mg PO DAILY #30 tab Continue Vitamin C/Biotin [Hair, Skin and Nails] 1 tab PO DAILY Cyanocobalamin (Vitamin B-12) [Vitamin B12] 5,000 mcg PO DAILY Ubidecarenone [Co Q-10] 100 mg PO HS Aspirin EC [Ecotrin Low Dose] 81 mg PO HS Calcium Carbonate/Vitamin D3 [Calcium 600-Vit D3 400 Tablet] 2 tab PO BID 5Hydroxytryptophan(Oxitriptan) [5-Htp] 200 mg PO HS Fluticasone Nasal [place] [Flonase Nasal [place]] 2 spr EA NOSTRIL DAILY Amoxic-Pot Clav 875-125Mg [Augmentin 875-125] 1 tab PO Q12HR Ashwagandha 1 tab PO BID Discharge Medication List Aspirin EC [Ecotrin Low Dose] 81 mg PO HS 02/27/18 [History] Cyanocobalamin (Vitamin B-12) [Vitamin B12] 5,000 mcg PO DAILY 02/27/18 [History ] Ubidecarenone [Co Q-10] 100 mg PO HS 02/27/18 [History] Vitamin C/Biotin [Hair, Skin and Nails] 1 tab PO DAILY 02/27/18 [History] 5Hydroxytryptophan(Oxitriptan) [5-Htp] 200 mg PO HS 06/28/18 [History] Amoxic-Pot Clav 875-125Mg [Augmentin 875-125] 1 tab PO Q12HR 06/28/18 [History] Ashwagandha 1 tab PO BID 06/28/18 [History] Calcium Carbonate/Vitamin D3 [Calcium 600-Vit D3 400 Tablet] 2 tab PO BID [History] Fluticasone Nasal [place] [Flonase Nasal [place]] 2 spr EA NOSTRIL DAILY 06/28/18 [ History] Apixaban [Eliquis] 5 mg PO BID #60 tab 06/30/18 [Rx] Atorvastatin [Lipitor] 40 mg PO HS #30 tab 06/30/18 [Rx] Clopidogrel [Plavix] 75 mg PO DAILY #30 tab 06/30/18 [Rx] Follow up Appointment(s)/Referral(s): Elizabeth Wolf MD [STAFF PHYSICIAN] - 3 Weeks Yuri Almendarez DO [Primary Care Provider] - 1-2 days Nomi Singh MD [STAFF PHYSICIAN] - 07/03/18 8:30 am Discharge Disposition: HOME SELF-CARE
[2018-06-30 17:29] VITALS: BP 132/80; PULSE 64
--- NOTE | 2018-06-30 20:14 | P.PN ---
Subjective Progress Note Date: 06/30/18 Principal diagnosis: TIA Interval update 06/30/18: neurology is following on a 68-year-old female with right upper extremity weakness, numbness and tingling as well as slight expressive aphasia. Symptoms all resolved within minutes of initial onset prior to presentation at the ED. Patient was rounded on yesterday and observed to be symptom free during inpatient stay. All imaging including MRI brain were negative for acute process. 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 Patient's EEG was ordered and taken. Patient is currently on Plavix and 5 mg daily, Lipitor 40 mg daily at bedtime. patient is tolerating medications well with no adverse effects and no complaints reported. Patient is alert and oriented 3, resting in bed in no acute distress. Discussed patient's imaging findings with patient. Patient had questions regarding definition of chronic small vessel ischemic disease. Had lengthy discussion with patient and spouse related to imaging reports, follow-up in our office, medication management long-term and other risk reduction factors. Objective - Vital Signs Vital signs: Vital Signs Temp 98.4 F 06/30/18 08:00 Pulse 64 06/30/18 16:00 Resp 17 06/30/18 16:00 BP 132/80 06/30/18 16:00 Pulse Ox 95 06/30/18 16:00 Intake & Output 06/30/18 06/30/18 07/01/18 06:59 18:59 06:59 Intake Total 240 Balance 240 Weight 90.3 kg Intake: Oral 240 Other: Voiding Method Toilet # Voids 1 2 - Exam General appearance: Alert & oriented x3, no apparent distress. Head: Atraumatic, normocephalic, normal inspection Eyes: Well appearance, PERRLA, EOMI. Absent scleral icterus, conjunctival injection, nystagmus, periorbital swelling. Ear, nose and throat: Normal exam, mucous membranes moist Neck: Normal inspection, absent tenderness, lymphadenopathy. Respiratory: No increased work of breathing Cardiovascular: Regular rate, rhythm GI/abdominal: No guarding Extremities: Full range of motion, normal capillary refill, no tenderness, pedal edema joint swelling, calf tenderness. Neurological: cranial nerves II through XII intact no lateralizing weakness no seizure activity noted on physical exam no pronator drift and no nystagmus. Left lower extremity: 5/5 Right lower extremity: 5/5 Left upper extremity: 5/5 Right upper extremity:5 /5 Sensation: Left lower extremity: normal Right lower extremity: normal Left upper extremity: normal Right upper extremity:normal Psychological: Mood and Affect appropriate for setting - Labs CBC & Chem 7: 06/28/18 14:04 06/28/18 14:04 Assessment and Plan (1) TIA (transient ischemic attack) Narrative/Plan: Patient does appear to have experienced TIA. Images are consistent with TIA and as well as resolved within several minutes. diagnostic workup to include: CT brain: No acute hemorrhage or mass-effect. Nonspecific patchy areas of low attenuation within the white matter. Findings may be the basis of remote microvascular ischemia. If there is concern for acute ischemia correlate clinically and if necessary with MRI. MRI brain without contrast: Nonspecific white matter demyelination. Findings may represent chronic small vessel ischemia, correlate. No acute or subacute abnormality evident within the brain. Right frontal sinus disease. EEG: Ordered Carotid Doppler as previously noted and results section lipid panel: elevated LDL and total cholesterol Treatment: Prescribe: Plavix 75 mg daily Prescribe: increase patient's Lipitor to 40 mg daily at bedtime continue neuro checks every shift Status: Acute Code(s): G45.9 - TRANSIENT CEREBRAL ISCHEMIC ATTACK, UNSPECIFIED SNOMED Code(s): 731121792 (2) Right arm weakness Narrative/Plan: resolved Status: Acute Code(s): R29.898 - OTH SYMPTOMS AND SIGNS INVOLVING THE MUSCULOSKELETAL SYSTEM SNOMED Code(s): 703150681 (3) Paresthesia of skin Narrative/Plan: resolved Status: Acute Code(s): R20.2 - PARESTHESIA OF SKIN SNOMED Code(s): 27922777 (4) Altered mental status Narrative/Plan: secondary to TIAresolved Status: Acute Code(s): R41.82 - ALTERED MENTAL STATUS, UNSPECIFIED SNOMED Code(s): 720404378 Plan: Status: Neurology will clear the patient was discharged from a neurological standpoint. Patient will follow up in our office within 10-14 days. Contact our office with any questions I have discussed the plan of care with the physician prior to implementation and he agrees with the plan as implemented.
--- NOTE | 2018-07-02 20:24 | EEG ---
ELECTROENCEPHALOGRAM REPORT DATE OF SERVICE: 06/29/2018 REASON FOR TESTING: Altered mental status and transient ischemic attack. DESCRIPTION OF THE PROCEDURE: This EEG was performed using a 21-channel digital electroencephalograph, following international 10-20 system. DESCRIPTION OF THE RECORDING: From the beginning of the tracing, and with the patient's eyes closed, the background rhythm was mostly consisting of 9-10 Hz alpha frequency in the posterior occipital leads. No obvious asymmetry is seen. Photic stimulation was performed with a good driving response seen. No pathological waves were elicited. Hyperventilation was not performed. Rare movement artifacts are seen. The patient remains awake throughout the tracing. No epileptiform discharges were seen. Her EKG lead showed a regular rate and rhythm. INTERPRETATION: This awake EEG can be considered within normal limits. There was no asymmetry seen. No epileptiform discharges were noticed. The absence of epileptiform discharges does not rule out the diagnosis of epilepsy; therefore clinical correlation is recommended. MMALFRED / MALIKA: [id number] /
== END 2018-06-30 18:13 | disposition home or self-care (01) | DRG 69 ==
LOC: EC 13:53 → 6SEL 15:31 → OBSVTOIN 06-30 09:53
PROVIDERS: ADMIT Hospitalist; ATTEND Hospitalist
DX: G45.9 Transient cerebral ischemic attack, unspecified (principal); E78.5 Hyperlipidemia, unspecified; M50.30 Other cervical disc degeneration, unspecified cervical region; I83.90 Asymptomatic varicose veins of unspecified lower extremity; H93.19 Tinnitus, unspecified ear; Z79.51 Long term (current) use of inhaled steroids; Z79.899 Other long term (current) drug therapy; Z86.718 Personal history of other venous thrombosis and embolism; Z87.01 Personal history of pneumonia (recurrent); Z87.891 Personal history of nicotine dependence; Z87.81 Personal history of (healed) traumatic fracture; Z82.49 Family history of ischemic heart disease and other diseases of the circulatory system; Z82.5 Family history of asthma and other chronic lower respiratory diseases
CPT/HCPCS: 36415; 70450; 70551; 71046; 80053; 80061; 81003; 82550; 82553; 83090; 84484; 85025; 85610; 85730; 93005; 93306; 95816; 99285

== ENCOUNTER 2018-07-19 06:13 | Day surgery (SDC) | payer MEDICARE ==
[2018-07-17 14:08] VITALS: BMI 28.5
[2018-07-19] MEDS ORDERED: ceFAZolin IN SWFI 2 GM/20 ML SYRINGE IVP ONE (06:26)
[2018-07-19 06:47] VITALS: BP 149/67; PULSE 59; RESP 20; TEMP 98.1
[2018-07-19] MEDS: BENZOCAINE SPRAY 1 CAN MUCOUS MEM ONE ×2 (07:30→07:40)
[2018-07-19] MEDS ORDERED: fentaNYL (PF) 50 MCG/ML 2 ML AMP ONE (07:32)
[2018-07-19] MEDS ORDERED: MIDAZOLAM 2 MG/2 ML VIAL ONE (07:33)
[2018-07-19] MEDS ORDERED: fentaNYL (PF) 50 MCG/ML 2 ML AMP IVP ONE (07:40)
[2018-07-19] MEDS: MIDAZOLAM 2 MG/2 ML VIAL IVP ONE ×2 (07:40→07:48)
[2018-07-19] MEDS ORDERED: SODIUM CHLORIDE 0.9% 500 ML IV ONE (07:57)
[2018-07-19] MEDS ORDERED: SODIUM CHLORIDE 0.9% 1,000 ML IV SCH (08:00)
--- NOTE | 2018-07-19 08:35 | ECHOT ---
TRANSESOPHAGEAL ECHOCARDIOGRAM INDICATION: CVA. PROCEDURE NOTE: After obtaining informed consent, transesophageal echocardiogram is performed in left lateral position using an Omniplane probe. Local and IV sedation were obtained using 2 mg of Versed and 50 mcg of fentanyl. The patient tolerated the procedure well without any obvious immediate complications. Patient received moderate conscious sedation. Total sedation time was 15 minutes. FINDINGS: 1. There is no intracardiac thrombus within the left atrial appendage, left atrium, right atrium, right ventricle or left ventricle. 2. Left ventricle has normal size and systolic function. 3. Interatrial septum: There is no evidence of [id number] shunt by color-flow Doppler or mqngj-fw-udee shunt by agitated saline contrast study. With agitated saline contrast injection, there were bubbles that crossed to the left side, but after 6 cardiac cycles. 4. Mitral valve is anatomically normal. There is mild mitral regurgitation noted. 5. Tricuspid valve appears normal. 6. Aortic valve is free of stenosis and regurgitation. 7. Aortic root measures 3.2 cm. 8. No significant atherosclerosis noted within the aorta. CONCLUSIONS: 1. No intracardiac source for thromboembolic cerebrovascular accident on this study. 2. Normal left ventricular function. The patient will have a loop recorder done and we will follow her for episodes of paroxysmal atrial fibrillation. In the meantime, the patient will continue the Eliquis that she is on. MMODL / IJN: [id number] /
[2018-07-19] MEDS ORDERED: LIDOCAINE 1% (PF) 10MG/ML VIAL SQ ONE (09:51)
[2018-07-19] MEDS ORDERED: IV FLUID CONTINUATION 1,000 ML IV ONE (09:52)
[2018-07-19] MEDS ORDERED: MIDAZOLAM 2 MG/2 ML VIAL IVP ONE (09:53)
--- NOTE | 2018-07-19 10:29 | PCN ---
PROCEDURE NOTE DATE OF SERVICE: 07/19/2018 PROCEDURE: Loop recorder insertion. PERFORMED BY: Dr. Laurie Holley. Moderate conscious sedation time was less than 15 minutes. CLINICAL INFORMATION: Mrs. Tamara Serna is a 68-year-old lady with a history of cryptogenic stroke, who was seen and evaluated by Dr. Singh. She was advised to have a KERRY echo that was performed by Dr. Singh and I advised the loop recorder. Risks, benefits, options were explained. PROCEDURE NOTE: Under local anesthesia and strict aseptic precautions with administration of the antibiotic concurrently, using the tool provided in the [employer] LINQ kit, a single stab incision was given in the fourth intercostal space in the lateral direction. Using the insertion tool, the loop recorder was inserted uneventfully in a lateral direction in the fourth intercostal space. Good hemostasis was secured and a single suture was applied. Patient tolerated the procedure well. The signal was about 1.17 mV. Excellent recording was obtained. The loop recorder was set for the cryptogenic stroke protocol. THE DEVICE INFORMATION: Sat Instructor [employer] device Reveal LINQ LNQ11, serial #[id number], model is [id number]. Settings were for the cryptogenic stroke protocol. The patient tolerated the procedure well without complication. MMODL / IJN: [id number] /
== END 2018-07-19 11:10 | disposition home or self-care (01) ==
LOC: CATHCVL 06:13
PROVIDERS: ATTEND Internal Medicine Cardiovascular Disease
DX: G45.9 Transient cerebral ischemic attack, unspecified (principal); E78.2 Mixed hyperlipidemia; R42 Dizziness and giddiness; I73.9 Peripheral vascular disease, unspecified; F17.210 Nicotine dependence, cigarettes, uncomplicated; Z79.01 Long term (current) use of anticoagulants; Z79.82 Long term (current) use of aspirin; Z79.899 Other long term (current) drug therapy
CPT/HCPCS: 93312; 93320; 93325; 33282; C1764; J2250; J3010; J2001; J0690

== ENCOUNTER → 2018-09-12 | Outpatient (CLI) | payer MEDICARE ==
--- NOTE | 2018-09-12 10:05 | XR ---
EXAMINATION TYPE: XR cervical spine comp DATE OF EXAM: 09/12/2018 TECHNIQUE: Frontal, lateral, oblique, and open mouth view of the cervical spine are obtained. HISTORY: M542 cervicalgia COMPARISON: None FINDINGS: The cervical spine is visualized in its entirety from C1 thru the inferior C7 level, it is straightened in alignment without evidence of acute fracture or dislocation. Osseous structures are somewhat demineralized. The pre-vertebral soft tissue appears within normal limits. The C1-C2 artic ulation is within normal limits on the open mouth view. Vertebral body heights are maintained. There is mild to moderate disc space narrowing and anterior spurring C4-C5 through C6-C7 levels. There is suboptimal evaluation of C7-T1 level without dedicated swimmer's view. The oblique images are within normal limits. Overlying soft tissue is unremarkable. IMPRESSION: As above.
== END | disposition home or self-care (01) ==
LOC: RADXRYALE 09:30
PROVIDERS: ATTEND Physician Assistant Medical
DX: M99.71 Connective tissue and disc stenosis of intervertebral foramina of cervical region (principal)
CPT/HCPCS: 72050

== ENCOUNTER → 2018-10-20 | Outpatient (CLI) | payer MEDICARE ==
--- NOTE | 2018-10-20 22:17 | MR ---
MRI CERVICAL SPINE: CLINICAL HISTORY: Cervical disc degeneration per order. Loss of range of motion and neck for several months with tingling in hands as well as pain or weakness in both arms and fingers per patient. TECHNIQUE: Multiplanar, multisequence imaging of the cervical spine is performed without IV contrast. COMPARISON: Cervical spine x-ray September 12, 2018. FINDINGS: Sagittal images of the cervical spine show the craniocervical junction to appear within nor mal limits. The cervical and upper thoracic spinal cord is normal in course, caliber, and signal. Th ere is grade 1 retrolisthesis of C3 on C4, C4 on C5, and C5 on C6. The vertebral body heights are no rmal. There is mild to moderate multilevel disc space narrowing and mild multilevel spurring. Lithographer Helper ior disc herniations or facing anterior thecal sac at C3-C4 through C5-C6 levels on sagittal images. Some heterogeneous endplate changes are noted. Axial images at C2-C3 level are felt to be within normal limits. Axial images at C3-C4 level showed broad based posterior disc protrusion effacing anterior thecal sac and causing moderate left greater than right bilateral neural foraminal narrowing. Some marginal spu rring is also present. Axial images at L4-L5 level show spondylolisthesis with broad disc protrusion has more prominent left foraminal component with marginal spurring, there is advanced left-sided neural foraminal narrowing, there is moderate to advanced right-sided neural foraminal narrowing noted. Axial images at C5-C6 level shows spondylosis and broad-based left paracentral disc protrusion effaci ng anterior thecal sac and causing advanced left with mild to moderate right-sided neural foraminal n arrowing noted. Axial images at C6-C7 level show right foraminal/paracentral disc protrusion effacing the anterolater al thecal sac, there is moderate bilateral neural foraminal narrowing at this level identified. Axial images at C7-T1 level are felt within normal limits. There is suspected 1.5 cm posterior inferior nodule in thyroid axial image 10. IMPRESSION: 1. Multilevel spondylolisthesis and degenerative change most prominent at C3-C4 through C5-C6 levels as detailed above. 2. Greater than 1 cm posterior inferior left thyroid nodule, follow-up thyroid ultrasound is advised to further evaluate and characterize if this is not known finding.
== END | disposition home or self-care (01) ==
LOC: RADMRIMAIN 10:08
PROVIDERS: ATTEND Family Medicine
DX: M43.12 Spondylolisthesis, cervical region (principal); M47.812 Spondylosis without myelopathy or radiculopathy, cervical region
CPT/HCPCS: 72141

== ENCOUNTER → 2018-11-01 | Outpatient (CLI) | payer MEDICARE ==
--- NOTE | 2018-11-02 16:58 | BD ---
EXAMINATION TYPE: Axial Bone Density DATE OF EXAM: 11/01/2018 COMPARISON: NONE CLINICAL HISTORY: 68 YR OLD FEMALE....ICD-10 CODE: Z13.820 SCREENING FOR OSTEOPOROSIS Height: 68.5 Weight: 193 FRAX RISK QUESTIONS: History of Fracture in Adulthood: YES RISK FACTORS HISTORY OF: HX OF FX TO TIBIAL PLATEAU OF KNEE LT, DEC 2017 Active: YES Postmenopausal woman: YES AT AGE 59 HEIGHT LOSS MEDICATIONS: Additional Medications: BP MEDS, STATIN FOR CHOLESTEROL, VIT D AND CALCIUM Additional History: NEUROPATHY, HYPERTENSION, CHOLESTEROL, VIT D DEFICIENCY EXAM MEASUREMENTS: Bone mineral densitometry was performed using the [employer] System. Bone mineral density as measured about the Lumbar spine is: ----- L1-L4(G/cm2): 0.962 T Score Values are as follows: ----- L1: -2.4 ----- L2: -2.7 ----- L3: -1.4 ----- L4: -1.2 ----- L1-L4: -1.8 Bone mineral density BASELINE DEXA SCAN Bone mineral density about the R hip (g/cm2): 0.666 Bone mineral density about the L hip (g/cm2): 0.615 T Score values are as follows: -----R Neck: -2.7 -----L Neck: -3.2 -----R Total: -2.7 -----L Total: -3.1 Bone mineral density BASELINE STUDY FRAX%s: THERE IS A 30.8% CHANCE FOR A MAJOR OSTEOPOROTIC FX AND A 11.1% FOR HIP....PROBABILITY OF FX IN 10 YRS TIME IMPRESSION: Osteoporosis (T Score less than -2.5). There is increased fracture risk and therapy is usually indicated based on age. Re-Screen 1-2 years. NOTE: T-SCORE=SD OF THE YOUNG ADULT MEAN.
--- NOTE | 2018-11-07 08:36 | MM ---
Reason for exam: screening (asymptomatic). Last mammogram was performed 13 years and 2 months ago. Physical Findings: A clinical breast exam by your physician is recommended on an annual basis and results should be correlated with mammographic findings. MG 3D Screening Mammo W/Cad Bilateral CC and MLO view(s) were taken. No prior studies available for comparison. The breast tissue is heterogeneously dense. This may lower the sensitivity of mammography. There are two right posterior depth asymmetries, one in the medial breast and one in the superior breast. Left cardiac loop recorder partially obscures visualization. ASSESSMENT: Incomplete: need additional imaging evaluation, BI-RAD 0 RECOMMENDATION: Special view mammogram of the right breast. If lesion persists on supplemental views, image directed ultrasound is recommended. [facility] will attempt to contact patient to return for supplemental views and ultrasound if indicated.
== END | disposition home or self-care (01) ==
LOC: RADMAMWWP 13:50
PROVIDERS: ATTEND Family Medicine
DX: Z12.31 Encounter for screening mammogram for malignant neoplasm of breast (principal); M81.0 Age-related osteoporosis without current pathological fracture
CPT/HCPCS: 77063; 77067; 77080

== ENCOUNTER → 2018-11-20 | Outpatient (CLI) | payer MEDICARE ==
--- NOTE | 2018-11-20 11:45 | US ---
EXAMINATION TYPE: US thyroid st tissue head/neck DATE OF EXAM: 11/20/2018 COMPARISON: MRI October 20, 2018. CLINICAL HISTORY: E04.2 Nontoxic multinodular goiter. nodules seen on MRI GLAND SIZE: Right Lobe: 6.0 x 1.9 x 2.2 cm Overall Parenchyma: heterogenous Left Lobe: 5.4 x 2.0 x 1.9 cm Overall Parenchyma: heterogeneous Isthmus Thickness: 0.2 cm NODULES RIGHT: # of nodules measured on right: 1, multiple subcentimeter 1. 1.3 X 1.2 x 1.2 cm cystic nodule at the mid pole with well-defined margins. This nodule is tall er than wide and shows no intranodular vascularity. 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 1.8 X 1.2 x 1.4 cm cystic nodule at the mid pole with well-defined margins. This nodule is tall er than wide and shows no intranodular vascularity. Prior size: PLANTING MACHINE CREWMAN ISTHMUS: # of nodules measured in the isthmus: 0 Bilateral neck scanned, no evidence of lymphadenopathy. Heterogeneous thyroid gland is mildly enlarged with scattered subcentimeter solid and cystic nodules, largest nodules noted above are greater than 1 cm but cystic nodules. IMPRESSION: Heterogeneous enlarged thyroid gland with multiple nodules, no worrisome greater than 1 cm solid nodu les are evident. Findings consistent with multinodular goiter. Findings correlate with recent MRI.
== END ==
LOC: RADUSWWP 08:47
PROVIDERS: ATTEND Family Medicine
DX: E04.2 Nontoxic multinodular goiter (principal)
CPT/HCPCS: 76536

== ENCOUNTER → 2018-11-23 | Outpatient (CLI) | payer MEDICARE ==
--- NOTE | 2018-11-27 08:25 | MM ---
Reason for exam: additional evaluation requested from abnormal screening. Last mammogram was performed 1 month ago. History: Took hormonal contraceptives for 12 years. Took progesterone for 2 years. Physical Findings: Nurse did not find any significant physical abnormalities on exam. MG 3D Work Up W/Cad RT Spot compression CC, spot compression MLO, XCCL, and LM view(s) were taken of the right breast. Prior study comparison: November 01, 2018, bilateral MG 3d screening mammo w/cad. August 19, 2005, bilateral screening mammogram w/CAD. The breast tissue is heterogeneously dense. This may lower the sensitivity of mammography. The right breast focal asymmetry upper MLO persist on compression. No significant new finding since 2018. These results were verbally communicated with the patient and result sheet given to the patient on 11/23/18. ASSESSMENT: Probably benign, BI-RAD 3 RECOMMENDATION: Follow-up diagnostic mammogram of the right breast in 6 months.
== END | disposition home or self-care (01) ==
LOC: RADMAMWWP 10:39
PROVIDERS: ATTEND Family Medicine
DX: R92.8 Other abnormal and inconclusive findings on diagnostic imaging of breast (principal)
CPT/HCPCS: 77065; G0279; 77061

== ENCOUNTER → 2018-12-24 | Outpatient (CLI) | payer MEDICARE ==
--- NOTE | 2018-12-24 15:41 | XR ---
EXAMINATION TYPE: XR abdomen 2V DATE OF EXAM: 12/24/2018 COMPARISON: None HISTORY: Diarrhea TECHNIQUE: Upright abdomen, supine abdomen. FINDINGS: Nonspecific bowel gas is present. This appears to be colonic. Some fecal debris is within t he descending colon region. Nonspecific small bowel gas is present. No suspicious differential air-fl uid levels are free air is evident. No mass effect is evident. Psoas margins are normal. Organomegaly is not present. IMPRESSION: 1. Nonspecific abdomen.
== END | disposition home or self-care (01) ==
LOC: RADXRYALE 12:03
PROVIDERS: ATTEND Physician Assistant Medical
DX: R19.7 Diarrhea, unspecified (principal)
CPT/HCPCS: 74019

== ENCOUNTER → 2019-01-19 | Outpatient (CLI) | payer MEDICARE ==
--- NOTE | 2019-01-20 19:31 | MR ---
EXAMINATION TYPE: MR lumbar spine wo con DATE OF EXAM: 01/19/2019 COMPARISON: None HISTORY: No prior, numbness to bilateral toes TECHNIQUE: Multiplanar, multisequence images of the lumbar spine were acquired. Lumbar vertebra have normal alignment. There is decreased signal in the disks throughout the lumbar s pine on the T2 images. There is small posterior disc bulging from L3 to S1 without significant imping ement on the spinal canal. There is hypertrophic facet arthropathy and lateral recess stenosis at L5- S1 and L4-5. There is no paraspinal mass. There is no compression fracture. Posterior elements are in tact. I see no focal bone destruction. Lumbar nerve roots appear normal. The neural foramina are fair ly well-maintained. IMPRESSION: Mild spondylotic changes as above. Mild lateral recess stenosis at L4-5 and L5-S1. No fracture. No sp inal stenosis. Degenerative disc signal changes. No significant disc space narrowing.
== END | disposition home or self-care (01) ==
LOC: RADMRIMAIN 09:22
PROVIDERS: ATTEND Physician Assistant Medical
DX: M48.061 Spinal stenosis, lumbar region without neurogenic claudication (principal); M48.07 Spinal stenosis, lumbosacral region; M47.816 Spondylosis without myelopathy or radiculopathy, lumbar region; M47.817 Spondylosis without myelopathy or radiculopathy, lumbosacral region
CPT/HCPCS: 72148

== ENCOUNTER 2019-04-09 09:50 | Day surgery (SDC) | payer MEDICARE ==
[2019-04-08 09:39] VITALS: BMI 26.1
[~2019-04-09 09:50] MED LIST: LACTATED RINGERS 1,000 ML IV SCH
[2019-04-09] MEDS ORDERED: LIDOCAINE 1% 20 ML VIAL (10MG/ML) FOR IV START INTRADERMA ONE (10:49)
[2019-04-09 10:58] VITALS: TEMP 97.7
[2019-04-09] MEDS ORDERED: LIDOCAINE 1% INJ 10MG/ML (20 ML MDV) ONE (12:06)
[2019-04-09] MEDS ORDERED: fentaNYL (PF) 50 MCG/ML 2 ML AMP ONE (12:06)
[2019-04-09] MEDS ORDERED: PROPOFOL 10 MG/ML 20 ML VIAL IV ONE (12:06)
--- NOTE | 2019-04-09 12:52 | P.PCN ---
Date of Procedure: 04/09/19 Procedure(s) Performed: Procedure: 1. Esophagogastroduodenoscopy and biopsy. 2. Total colonoscopy and biopsy. Preoperative diagnosis: Nausea and change in bowel habits. Postoperative diagnosis: 1. Small sliding hiatal hernia and low-grade distal esophagitis orifices. 2. Mild gastritis. 3. Normal colon exam. 4. Biopsies obtained from the duodenum, antrum,esophagus and right colon. Preparation: HalfLytely prep. Sedation: Was provided by anesthesia. Brief clinical history: The patient is 69-year-old female who is scheduled for this evaluation because of history nausea and change in bowel habits around 4 months duration. The patient has no other abdominal complaints, bleeding or anemia. Procedure: With the patient on her left lateral decubitus position and after informed consent and adequate sedation, I passed the Olympus-GIF H190 video upper endoscope through the cricopharyngeus down the esophagus. GE junction was around 41 cm from the incisors and there was a small sliding hernia and short linear erosions consistent with low-grade distal esophagitis. The endoscope was then passed into the stomach which was insufflated with air and inspected in detail including the retroflex view in the cardia. There was some minimal mottling and erythema in the antrum but no ulcers or erosions. Pyloric channel did not show any ulcers. Duodenal bulb, post bulbar area and descending duodenum appeared within normal limits. I obtained biopsies from the duodenum, antrum and esophagus then the endoscope was withdrawn and I proceeded to perform the colonoscopy. Perianal area did not show any fissures or fistulas. There were no masses felt on digital rectal examination. The Olympus CFH 190L video colonoscope was then inserted in the rectum in the usual fashion and advanced to the cecum. The mucosa appeared healthy. No polyps or tumors were seen or any obvious diverticular disease or other pathology. I retroflexed the endoscope in the rectum before the endoscope was withdrawn. I obtained biopsies in the right colon. The patient tolerated the procedure well. Plan: The patient was reassured. Will await biopsy results and make further recommendations based on her course and biopsy results.
[2019-04-09 13:04] VITALS: BP 148/86; PULSE 56; RESP 16
== END 2019-04-09 13:37 | disposition home or self-care (01) ==
LOC: ORWHC2ENDO 09:50
DX: R19.4 Change in bowel habit (principal); J44.9 Chronic obstructive pulmonary disease, unspecified; K29.50 Unspecified chronic gastritis without bleeding; K21.0 Gastro-esophageal reflux disease with esophagitis; K44.9 Diaphragmatic hernia without obstruction or gangrene; I10 Essential (primary) hypertension; E78.5 Hyperlipidemia, unspecified; F41.9 Anxiety disorder, unspecified; Z86.718 Personal history of other venous thrombosis and embolism; Z86.73 Personal history of transient ischemic attack (TIA), and cerebral infarction without residual deficits; Z79.01 Long term (current) use of anticoagulants; Z79.82 Long term (current) use of aspirin; Z79.899 Other long term (current) drug therapy; Z98.890 Other specified postprocedural states; Z88.8 Allergy status to other drugs, medicaments and biological substances
CPT/HCPCS: 45380; 43239; 88305; J2001; J3010; J2704

== ENCOUNTER → 2019-04-17 | Outpatient (CLI) | payer MEDICARE ==
--- NOTE | 2019-04-17 15:20 | XR ---
2 view abdomen HISTORY: Generalized abdomen pain 2 views the abdomen on 3 images, correlation prior abdomen 12/25/2018 There is no evident obstruction. Lung bases are clear. Bone mineralization is reduced. No pathologic calcification, pneumoperitoneum. IMPRESSION: Nonobstructive bowel gas pattern. Follow-up as indicated.
== END | disposition home or self-care (01) ==
LOC: RADXRYALE 14:09
PROVIDERS: ATTEND Physician Assistant Medical
DX: R10.84 Generalized abdominal pain (principal)
CPT/HCPCS: 74019

== ENCOUNTER → 2019-05-24 | Outpatient (CLI) | payer MEDICARE ==
--- NOTE | 2019-05-24 13:42 | MM ---
Reason for exam: follow-up at short interval from prior study. Last mammogram was performed 6 months ago. History: Patient is postmenopausal. Took hormonal contraceptives for 12 years. Took progesterone for 2 years. Physical Findings: Nurse did not find any significant physical abnormalities on exam. MG 3D Diag Mammo W/Cad RT CC and MLO view(s) were taken of the right breast. Prior study comparison: November 23, 2018, right breast MG 3d work up w/cad RT. November 01, 2018, bilateral MG 3d screening mammo w/cad. The breast tissue is heterogeneously dense. This may lower the sensitivity of mammography. No significant new findings when compared with previous films. These results were verbally communicated with the patient and result sheet given to the patient on 05/24/19. ASSESSMENT: Benign, BI-RAD 2 RECOMMENDATION: Return to routine screening mammogram schedule for both breasts. Back on schedule for October 2019.
== END | disposition home or self-care (01) ==
LOC: RADMAMWWP 12:27
PROVIDERS: ATTEND Family Medicine
DX: N63.10 Unspecified lump in the right breast, unspecified quadrant (principal)
CPT/HCPCS: 77065; G0279; 77061

== ENCOUNTER → 2019-07-09 | Outpatient (CLI) | payer MEDICARE ==
--- NOTE | 2019-07-09 16:04 | NM ---
EXAMINATION TYPE: NM hepatobiliary w EF DATE OF EXAM: 07/09/2019 COMPARISON: NONE HISTORY: Right upper quadrant pain and nausea TECHNIQUE: After the intravenous administration of 4.7 mCi Tc 99m Mebrofenin hepatobiliary scintigrap hy is performed. Immediate images post injection. FINDINGS: There is satisfactory initial accumulation of tracer by the liver. The gallbladder is visualized wit hin 10 minutes. The small bowel activity is noted within 26 minutes. At one hour 8 ounces of oral e nsure plus is given to mimic CCK and gallbladder ejection fraction is calculated at 75 %, upper limit s of normal. Therefore there is no scintigraphic evidence of cystic or common bile duct obstruction to suggest acute cholecystitis or gallbladder dyskinesia. IMPRESSION: 1. No scintigraphic evidence of acute or chronic cholecystitis. 2. Biliary ejection fraction is upper limits of normal at 75% and the patient did experience nausea w ith administration of ensure. Therefore biliary hyperkinesia should be considered.
== END | disposition home or self-care (01) ==
LOC: RADNMMAIN 12:59
PROVIDERS: ATTEND Physician Assistant Medical
DX: R10.11 Right upper quadrant pain (principal); R10.811 Right upper quadrant abdominal tenderness
CPT/HCPCS: 78226; A9537

== ENCOUNTER → 2019-08-02 | Outpatient (CLI) | payer MEDICARE ==
[2019-08-02 14:07] LABS: African American GFR (CKD) >90 (>60 ml/min/1.73 sqM); Blood Urea Nitrogen 11 mg/dL (7-17)
--- NOTE | 2019-08-02 16:07 | CT ---
EXAMINATION TYPE: CT angio neck DATE OF EXAM: 08/02/2019 HISTORY: HX OF TIA COMPARISON: None CT DLP: 201.3 mGycm. Automated Exposure Control for Dose Reduction was Utilized. TECHNIQUE: CTA scan of the neck is performed with IV Contrast, patient injected with 65 mL of Isovue 370, axial images are obtained, coronal and sagittal reformatted images are reviewed. Three-D recons tructed images are created on an independent workstation and reviewed. FINDINGS: Carotid/Vascular Structures: The transverse aorta is patent. The innominate artery, left and right co mmon carotid, left and right subclavian arteries are patent. The vertebral arteries are patent and co dominant. Internal and external carotid arteries are patent. There is no evident dissection or embolu s. No significant stenosis of the proximal internal carotid arteries. Other: Degenerative disc changes are present within the visualized spine. There is associated facet a rthropathy, multilevel foraminal encroachment. Incidental thyroid nodules. IMPRESSION: No significant stenosis is seen. Additional findings above.
== END | disposition home or self-care (01) ==
LOC: RADCTMAIN 13:12
PROVIDERS: ATTEND Psychiatry & Neurology Neurology
DX: Z09 Encounter for follow-up examination after completed treatment for conditions other than malignant neoplasm (principal); E04.2 Nontoxic multinodular goiter; Z13.89 Encounter for screening for other disorder; Z86.73 Personal history of transient ischemic attack (TIA), and cerebral infarction without residual deficits
CPT/HCPCS: 82565; 84520; 70498; Q9967

== ENCOUNTER 2019-10-27 20:42 | Emergency (ER) | payer MEDICARE ==
--- NOTE | 2019-10-27 21:06 | ED ---
General Adult HPI - General Chief complaint: Chest Pain Stated complaint: Side/Chest pain Time Seen by Provider: 10/27/19 20:51 Source: patient Mode of arrival: ambulatory Limitations: no limitations - History of Present Illness Initial comments: Patient presents the ED with her for evaluation. Patient states that she is has had sharp, pleuritic, left lateral chest pain for the past hour or so. Patient states that she first noticed her chest pain when she rolled over in bed. Patient states that her pain is worse with deep inspiration and with palpation. Patient admits to feeling mildly dyspneic as well. Patient has had a lower extremity DVT in the past, and she is not currently on anticoagulation therapy. She denies known trauma or injury, fever or chills, headache, focal numbness/weakness/neuro deficit, neck/arm/jaw pain, leg or calf swelling/pain, cough or cold symptoms, palpitations, dizziness, nausea/vomiting/diaphoresis, a bdominal pain, decreased urine output, urinary symptoms, or any other symptoms or complaints. - Related Data Home Medications Medication Instructions Recorded Confirmed Aspirin EC [Ecotrin Low Dose] 81 mg PO HS 02/27/18 04/09/19 Calcium Carbonate/Vitamin D3 1 tab PO DAILY 06/28/18 04/09/19 [Calcium 600-Vit D3 400 Tablet] Fluticasone Nasal [place] [Flonase 2 spr EA NOSTRIL BID PRN 06/28/18 04/09/19 Nasal [place]] Cholecalciferol [Vitamin D3] 5,000 unit PO Q72H 07/17/18 04/09/19 Hydrochlorothiazide [Hydrodiuril] 25 mg PO Q48H 07/17/18 04/09/19 L.acidoph,Paracasei, B.lactis 1 each PO DAILY 07/17/18 04/09/19 [Probiotic] ALPRAZolam [Xanax] 0.25 mg PO BID PRN 04/08/19 04/09/19 Alendronate Sodium [Fosamax] 70 mg PO MO 04/08/19 04/09/19 DULoxetine HCL [Cymbalta] 30 mg PO DAILY 04/08/19 04/09/19 Previous Rx's Medication Instructions Recorded Apixaban [Eliquis] 5 mg PO BID #60 tab 06/30/18 Levofloxacin 750 mg PO DAILY 4 Days #4 tablet 10/27/19 Allergies Allergy/AdvReac Type Severity Reaction Status Date / Time lidocaine Allergy Rash/Hives Verified 10/27/19 20:50 prednisone Allergy MUSCLE Verified 10/27/19 20:49 PAIN , HOARSENESS , TROUBLE SWALLOWING Hdzdkmj-[id number]-Ukn Reductase Allergy MUSCLE AND Verified 10/27/19 20:49 Inhibitor NERVE PAIN Review of Systems ROS Statement: Those systems with pertinent positive or pertinent negative responses have been documented in the HPI. ROS Other: All systems not noted in ROS Statement are negative. Past Medical History Past Medical History: COPD, CVA/TIA, Deep Vein Thrombosis (DVT), GERD/Reflux, Hyperlipidemia, Hypertension, Pneumonia, Thyroid Disorder Additional Past Medical History / Comment(s): TIA 06-28-18-no residual weakness, dvt left leg, irregular heart beat, murmur-loop recorder, thyroid nodule and goiter , gallbladder dysfunction, History of Any Multi-Drug Resistant Organisms: None Reported Past Surgical History: Tonsillectomy, Uterine Ablation Additional Past Surgical History / Comment(s): D&C,leep procedure, varicose veins stripping, Past Anesthesia/Blood Transfusion Reactions: No Reported Reaction Additional Past Anesthesia/Blood Transfusion Reaction / Comment(s): blood transfusion in past-no reaction to it Past Psychological History: Anxiety, Depression Smoking Status: Former smoker Past Alcohol Use History: None Reported Past Drug Use History: None Reported - Past Family History Mother Family Medical History: Congestive Heart Failure (CHF), Hypertension Additional Family Medical History / Comment(s): Parkinson Father Family Medical History: COPD Additional Family Medical History / Comment(s): 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 Sister(s) Family Medical History: Cancer Additional Family Medical History / Comment(s): THYROID CANCER General Exam Limitations: no limitations General appearance: alert, in no apparent distress Head exam: Present: atraumatic, normocephalic Eye exam: Present: normal appearance, EOMI ENT exam: Present: mucous membranes moist Neck exam: Present: other (Trachea is in midline) Respiratory exam: Present: normal lung sounds bilaterally, other (Mild left lateral chest wall tenderness). Absent: respiratory distress, wheezes, rales, rhonchi Cardiovascular Exam: Present: regular rate, normal rhythm, normal heart sounds, other (Normal radial pulses bilaterally) GI/Abdominal exam: Present: soft. Absent: distended, tenderness, guarding Extremities exam: Present: other (Negative Avinash's sign bilaterally). Absent: tenderness, pedal edema, calf tenderness Back exam: Absent: tenderness Neurological exam: Present: alert, oriented X3. Absent: motor sensory deficit Psychiatric exam: Present: normal affect, normal mood Skin exam: Present: warm, dry, intact, normal color Course Vital Signs 10/27/19 20:45 Temperature 98.2 F Pulse Rate 81 Respiratory 22 Rate Blood Pressure 161/72 O2 Sat by Pulse 97 Oximetry - Reevaluation(s) Reevaluation #1: 10/27/19 23:22 Patient states that her pain has improved with ED treatment. Patient remains alert and breathing comfortably with a normal room air oxygen saturation. Patient and are aware of the patient's test results/CT report, and patient feels comfortable going home with her at this time. EKG Findings - EKG Comments: EKG Findings:: Normal sinus rhythm, ventricular rate of 64 bpm, no ectopy, normal NV and QRS intervals, normal QT interval, normal axis, minimal voltage criteria for LVH, no ST or T-wave abnormality Medical Decision Making - Medical Decision Making Patient's labs are fairly unremarkable. Patient is afebrile and without leukocytosis. Patient's troponin is within normal limits. Patient's CT angiogram chest is negative for pulmonary embolism, but does show a left upper lobe infiltrate adjacent to her lateral chest wall, which is what I suspect is likely the cause of her pleuritic left lateral chest pain. Patient now does report having a cough and post nasal drainage. I suspect that her infiltrate is likely secondary to pneumonia. Will treat the patient with a course of antibiotics for community-acquired pneumonia. Patient was instructed to follow up closely with her primary care provider for repeat chest imaging once she has completed her course of antibiotics. Patient feels comfortable going home with her at this time. Patient was counseled about pleuritic chest pain and pneumonia. Patient was instructed to follow up closely with her primary care provider. Patient was instructed to return to the ER should she develop new or worsening pain, increased shortness of breath, a fever, vomiting, feeling dizzy or faint, or new or worsening symptoms. - Lab Data Result diagrams: 10/27/19 21:32 10/27/19 21:32 Lab Results 10/27/19 10/27/19 10/27/19 Range/Units 21:32 21:32 21:32 WBC 6.2 (3.8-10.6) k/uL RBC 4.16 (3.80-5.40) m/uL Hgb 12.4 (11.4-16.0) gm/dL Hct 38.4 (34.0-46.0) % MCV 92.3 (80.0-100.0) fL MCH 29.9 (25.0-35.0) pg MCHC 32.3 (31.0-37.0) g/dL RDW 12.2 (11.5-15.5) % Plt Count 279 (150-450) k/uL Neutrophils % 61 % Lymphocytes % 32 % Monocytes % 4 % Eosinophils % 1 % Basophils % 0 % Neutrophils # 3.7 (1.3-7.7) k/uL Lymphocytes # 2.0 (1.0-4.8) k/uL Monocytes # 0.3 (0-1.0) k/uL Eosinophils # 0.1 (0-0.7) k/uL Basophils # 0.0 (0-0.2) k/uL PT (9.0-12.0) sec INR (<1.2) APTT (22.0-30.0) sec Sodium 141 (137-145) mmol/L Potassium 4.2 (3.5-5.1) mmol/L Chloride 109 H (98-107) mmol/L Carbon Dioxide 25 (22-30) mmol/L Anion Gap 7 mmol/L BUN 14 (7-17) mg/dL Creatinine 0.70 (0.52-1.04) mg/dL Est GFR (CKD-EPI)AfAm >90 (>60 ml/min/1.73 sqM) Est GFR (CKD-EPI)NonAf 89 (>60 ml/min/1.73 sqM) Glucose 109 H (74-99) mg/dL Calcium 9.8 (8.4-10.2) mg/dL Total Bilirubin 0.5 (0.2-1.3) mg/dL AST 22 (14-36) U/L ALT 16 (4-34) U/L Alkaline Phosphatase 62 (38-126) U/L Troponin I (0.000-0.034) ng/mL NT-Pro-B Natriuret Pep 94 pg/mL Total Protein 7.1 (6.3-8.2) g/dL Albumin 4.3 (3.5-5.0) g/dL 10/27/19 10/27/19 Range/Units 21:32 21:32 WBC (3.8-10.6) k/uL RBC (3.80-5.40) m/uL Hgb (11.4-16.0) gm/dL Hct (34.0-46.0) % MCV (80.0-100.0) fL MCH (25.0-35.0) pg MCHC (31.0-37.0) g/dL RDW (11.5-15.5) % Plt Count (150-450) k/uL Neutrophils % % Lymphocytes % % Monocytes % % Eosinophils % % Basophils % % Neutrophils # (1.3-7.7) k/uL Lymphocytes # (1.0-4.8) k/uL Monocytes # (0-1.0) k/uL Eosinophils # (0-0.7) k/uL Basophils # (0-0.2) k/uL PT 9.3 (9.0-12.0) sec INR 0.8 (<1.2) APTT 22.3 (22.0-30.0) sec Sodium (137-145) mmol/L Potassium (3.5-5.1) mmol/L Chloride (98-107) mmol/L Carbon Dioxide (22-30) mmol/L Anion Gap mmol/L BUN (7-17) mg/dL Creatinine (0.52-1.04) mg/dL Est GFR (CKD-EPI)AfAm (>60 ml/min/1.73 sqM) Est GFR (CKD-EPI)NonAf (>60 ml/min/1.73 sqM) Glucose (74-99) mg/dL Calcium (8.4-10.2) mg/dL Total Bilirubin (0.2-1.3) mg/dL AST (14-36) U/L ALT (4-34) U/L Alkaline Phosphatase (38-126) U/L Troponin I <0.012 (0.000-0.034) ng/mL NT-Pro-B Natriuret Pep pg/mL Total Protein (6.3-8.2) g/dL Albumin (3.5-5.0) g/dL - Radiology Data Radiology results: report reviewed (CT angiogram chest is negative for pulmonary embolism and demonstrates a patchy infiltrate in the left upper lobe adjacent to the left lateral chest wall and a few nonspecific small bronchial lymph nodes) Disposition Clinical Impression: Pleuritic chest pain, Pneumonia Disposition: HOME SELF-CARE Condition: Stable Instructions (If sedation given, give patient instructions): Community Acquired Pneumonia (ED), Chest Pain (ED) Additional Instructions: Return to the ER immediately should you develop new or worsening pain, increased shortness of breath, a fever, vomiting, feeling dizzy or faint, or new or worsening symptoms. Follow up closely with your primary care provider. Prescriptions: Levofloxacin 750 mg PO DAILY 4 Days #4 tablet Is patient prescribed a controlled substance at d/c from ED?: No Referrals: Yuri Almendarez DO [Primary Care Provider] - 1-2 days Time of Disposition: 23:29
[2019-10-27] MEDS ORDERED: SODIUM CHLORIDE 0.9% 500 ML 500 ML IV STA (21:13)
[2019-10-27] MEDS ORDERED: MORPHINE SULFATE 4 MG/ML SYRINGE IV STA (21:13)
[2019-10-27 22:11] LABS: Basophils % (A) 0 %; Eosinophils # (A) 0.1 k/uL (0-0.7); Eosinophils % (A) 1 %; HCT 38.4 % (34.0-46.0); HGB 12.4 gm/dL (11.4-16.0); INR 0.8 (<1.2); Lymphocytes % (A) 32 %; MCH 29.9 pg (25.0-35.0); MCHC 32.3 g/dL (31.0-37.0); MCV 92.3 fL (80.0-100.0); Mean Platelet Volume 7.4; Monocytes # (A) 0.3 k/uL (0-1.0); Monocytes % (A) 4 %; Neutrophils # (A) 3.7 k/uL (1.3-7.7); Neutrophils % (A) 61 %; Partial Thromboplastin Time 22.3 sec (22.0-30.0); Platelet Count 279 k/uL (150-450); Prothrombin Time 9.3 sec (9.0-12.0); RBC 4.16 m/uL (3.80-5.40); RDW 12.2 % (11.5-15.5); WBC 6.2 k/uL (3.8-10.6)
[2019-10-27 22:15] LABS: ALT 16 U/L (4-34); AST 22 U/L (14-36); African American GFR (CKD) >90 (>60 ml/min/1.73 sqM); Albumin 4.3 g/dL (3.5-5.0); Alkaline Phosphatase 62 U/L (38-126); Anion Gap 7 mmol/L; Blood Urea Nitrogen 14 mg/dL (7-17); Calcium 9.8 mg/dL (8.4-10.2); Carbon Dioxide 25 mmol/L (22-30); Chloride 109 mmol/L (98-107); Glucose 109 mg/dL (74-99); Non-African American GFR(CKD) 89 (>60 ml/min/1.73 sqM); Potassium 4.2 mmol/L (3.5-5.1); Sodium 141 mmol/L (137-145); Total Bilirubin 0.5 mg/dL (0.2-1.3); Total Protein 7.1 g/dL (6.3-8.2)
--- NOTE | 2019-10-27 22:58 | CT ---
EXAMINATION TYPE: CT chest angio for PE DATE OF EXAM: 10/27/2019 COMPARISON: 02/27/2018 HISTORY: chest pain CT DLP: 365.6 mGycm Automated exposure control for dose reduction was used. CONTRAST: Performed with IV Contrast, patient injected with 80cc mL of Isovue 370. There are 3-D post processed images. There is some patchy reticular nodular infiltrate in the periphery of the left midlung. There is no p leural effusion. There is no pericardial effusion. There is normal contrast opacification of the pulmonary arteries. There are no filling defects. Thora cic aorta shows no aneurysm or dissection. The ascending aorta measures 3.7 cm. There are a few bronc hial lymph nodes up to 1 cm bilaterally. There is some spurring in the thoracic spine. The ribs appea r intact. Thoracic spine is intact. IMPRESSION: No evidence of pulmonary embolism. Patchy infiltrate in the left upper lobe adjacent to the left late ral chest wall more likely related to inflammatory disease. This is a change compared to old exam. Th ere are few nonspecific small bronchial lymph nodes.. Follow-up chest x-ray is recommended show clear ing of left upper lobe infiltrate.
[2019-10-27] MEDS ORDERED: LEVOFLOXACIN 750 MG TAB PO STA (23:22)
[2019-10-27 23:34] VITALS: BP 138/79; PULSE 59; RESP 16; TEMP 98
== END 2019-10-27 23:42 | disposition home or self-care (01) ==
LOC: EC 20:42
DX: J44.0 Chronic obstructive pulmonary disease with (acute) lower respiratory infection (principal); J18.9 Pneumonia, unspecified organism; I10 Essential (primary) hypertension; F41.9 Anxiety disorder, unspecified; F32.9 Major depressive disorder, single episode, unspecified; Z87.891 Personal history of nicotine dependence; Z82.49 Family history of ischemic heart disease and other diseases of the circulatory system; Z86.73 Personal history of transient ischemic attack (TIA), and cerebral infarction without residual deficits; Z79.82 Long term (current) use of aspirin; Z79.899 Other long term (current) drug therapy; Z88.4 Allergy status to anesthetic agent; Z88.8 Allergy status to other drugs, medicaments and biological substances
CPT/HCPCS: 36415; 93005; 83880; 80053; 84484; 85025; 85610; 85730; 71275; 99284; 96374; 96361 ×2; J2270; Q9967

== ENCOUNTER → 2019-11-01 | Outpatient (CLI) | payer MEDICARE ==
--- NOTE | 2019-11-01 11:09 | XR ---
EXAMINATION TYPE: XR chest 2V DATE OF EXAM: 11/01/2019 COMPARISON: 06/28/2019 , CT chest 10/27/2019 HISTORY: Shortness of breath TECHNIQUE: Frontal and lateral views of the chest are obtained. FINDINGS: Scattered senescent parenchymal changes noted. Hyperinflation compatible with COPD. No evidence for infiltrate. No evidence for atelectasis. Nodular density left midlung zone at its per iphery described on recent CT chest. Heart size is stable. Mediastinal structures are stable and grossly unremarkable. No evidence for hilar prominence. Degenerative changes dorsal spine. IMPRESSION: 1. Focal nodular density left midlung zone may reflect residual infiltrate however nodule of other et iology is not excluded. Follow-up until clearing is advised.
== END | disposition home or self-care (01) ==
LOC: RADXRYALE 10:55
PROVIDERS: ATTEND Physician Assistant
DX: J98.4 Other disorders of lung (principal); J18.0 Bronchopneumonia, unspecified organism
CPT/HCPCS: 71046

== ENCOUNTER → 2019-11-08 | Outpatient (CLI) | payer MEDICARE ==
--- NOTE | 2019-11-08 11:40 | XR ---
EXAMINATION TYPE: XR chest 2V DATE OF EXAM: 11/08/2019 COMPARISON: 11/01/2019 INDICATION: Bronchopneumonia TECHNIQUE: Frontal and lateral views of the chest are obtained. FINDINGS: The heart size is normal. The pulmonary vasculature is normal. Minimal residual infiltrate is in the left midlung, improved from comparison. Continued follow-up is recommended. Electronic device overlies the heart shadow. IMPRESSION: 1. Improving infiltrate periphery of the left midlung. Residual remains an additional follow-up is re commended to complete clearing.
== END | disposition home or self-care (01) ==
LOC: RADXRYALE 10:25
PROVIDERS: ATTEND Physician Assistant
DX: J18.0 Bronchopneumonia, unspecified organism (principal)
CPT/HCPCS: 71046

== ENCOUNTER → 2019-11-22 | Outpatient (CLI) | payer MEDICARE ==
--- NOTE | 2019-11-22 12:32 | XR ---
EXAMINATION TYPE: XR chest 2V DATE OF EXAM: 11/22/2019 COMPARISON: 11/08/2019,11/01/2019 INDICATION: Pneumonia TECHNIQUE: Frontal and lateral views of the chest are obtained. FINDINGS: The heart size is normal. The pulmonary vasculature is normal. The lungs are clear. No suspicious infiltrates are evident. There appears be some continued improvin g linear opacity within the left mid peripheral lung. Loop recorder is over the left chest. IMPRESSION: 1. Continued improvement of left midlung opacity. Some underlying scarring should be considered. Foll ow-up chest x-ray in 3 months.
== END | disposition home or self-care (01) ==
LOC: RADXRYALE 11:14
PROVIDERS: ATTEND Physician Assistant Medical
DX: R91.8 Other nonspecific abnormal finding of lung field (principal)
CPT/HCPCS: 71046

== ENCOUNTER → 2019-11-26 | Outpatient (CLI) | payer MEDICARE ==
--- NOTE | 2019-11-26 14:50 | MM ---
Reason for exam: screening (asymptomatic). Last mammogram was performed 6 months ago. History: Patient is postmenopausal. Took hormonal contraceptives for 12 years. Took progesterone for 2 years. Physical Findings: A clinical breast exam by your physician is recommended on an annual basis and results should be correlated with mammographic findings. MG 3D Screening Mammo W/Cad Bilateral CC and MLO view(s) were taken. Prior study comparison: May 24, 2019, right breast MG 3d diag mammo w/cad RT. November 23, 2018, right breast MG 3d work up w/cad RT. The breast tissue is heterogeneously dense. This may lower the sensitivity of mammography. There is chronic nodularity in the left breast inferior aspect. There is no discrete abnormality. Left loop recorder posterior upper inner aspect. ASSESSMENT: Benign, BI-RAD 2 RECOMMENDATION: Routine screening mammogram of both breasts in 1 year.
== END ==
LOC: RADMAMWWP 07:52
PROVIDERS: ATTEND Family Medicine
DX: Z12.31 Encounter for screening mammogram for malignant neoplasm of breast (principal)
CPT/HCPCS: 77063; 77067

== ENCOUNTER → 2020-03-10 | Outpatient (CLI) | payer MEDICARE ==
--- NOTE | 2020-03-10 11:12 | XR ---
EXAMINATION TYPE: XR chest 2V DATE OF EXAM: 03/10/2020 COMPARISON: 11/22/2019 HISTORY: Shortness of breath TECHNIQUE: Frontal and lateral views of the chest are obtained. FINDINGS: Scattered senescent parenchymal changes noted. Hyperinflation compatible with COPD. No evidence for infiltrate. No evidence for atelectasis. Heart size is stable. Mediastinal structures are stable and grossly unremarkable. No evidence for hilar prominence. Degenerative changes dorsal spine. IMPRESSION: 1. No evidence for acute pulmonary disease.
== END | disposition home or self-care (01) ==
LOC: RADXRYALE 10:49
PROVIDERS: ATTEND Physician Assistant Medical
DX: J15.9 Unspecified bacterial pneumonia (principal)
CPT/HCPCS: 71046

== ENCOUNTER → 2021-01-12 | Outpatient (CLI) | payer MEDICARE ==
--- NOTE | 2021-01-12 12:38 | MM ---
Reason for exam: screening (asymptomatic). Last mammogram was performed 1 year and 2 months ago. History: Patient is postmenopausal. Took hormonal contraceptives for 12 years. Took progesterone for 2 years. Physical Findings: A clinical breast exam by your physician is recommended on an annual basis and results should be correlated with mammographic findings. MG 3D Screening Mammo W/Cad Bilateral CC and MLO view(s) were taken. Prior study comparison: November 26, 2019, bilateral MG 3d screening mammo w/cad. May 24, 2019, right breast MG 3d diag mammo w/cad RT. The breast tissue is heterogeneously dense. This may lower the sensitivity of mammography. There is no discrete abnormality. Left loop recorder redemonstrated. ASSESSMENT: Benign, BI-RAD 2 RECOMMENDATION: Routine screening mammogram of both breasts in 1 year.
== END ==
LOC: RADMAMWWP 11:31
PROVIDERS: ATTEND Family Medicine
DX: Z12.31 Encounter for screening mammogram for malignant neoplasm of breast (principal); Z78.0 Asymptomatic menopausal state
CPT/HCPCS: 77063; 77067

== ENCOUNTER → 2021-02-16 | Outpatient (CLI) | payer MEDICARE ==
--- NOTE | 2021-02-16 11:02 | US ---
EXAMINATION TYPE: US venous doppler duplex LE LT DATE OF EXAM: 02/16/2021 10:44 AM COMPARISON: Prior 02/27/2018 exam. CLINICAL HISTORY: 71-year-old female M79.605 PAIN IN LEFT LEG, R22.42 LOCALIZED SWELLING, MASS A. Lef t calf pain x couple days, history of left leg DVT, patient on blood thinners. SIDE PERFORMED: Left TECHNIQUE: The lower extremity deep venous system is examined utilizing real time linear array sonog juventino with graded compression, doppler sonography and color-flow sonography. FINDINGS: VESSELS IMAGED: Common Femoral Vein Deep Femoral Vein Greater Saphenous Vein * Femoral Vein Popliteal Vein Small Saphenous Vein * Proximal Calf Veins (* superficial vessels) Left Leg: Appears negative for DVT IMPRESSION: No evidence for DVT within the left lower extremity imaged from the groin to the upper calf. Interval clearance of the previous DVT seen in 2018.
== END | disposition home or self-care (01) ==
LOC: RADUSWWP 10:05
PROVIDERS: ATTEND Family Medicine
DX: M79.605 Pain in left leg (principal); R22.42 Localized swelling, mass and lump, left lower limb; Z79.01 Long term (current) use of anticoagulants; Z86.718 Personal history of other venous thrombosis and embolism

== ENCOUNTER → 2021-03-18 | Outpatient (CLI) | payer MEDICARE ==
--- NOTE | 2021-03-18 16:30 | US ---
EXAMINATION TYPE: US pelvis complete transvag DATE OF EXAM: 03/18/2021 COMPARISON: None. CLINICAL HISTORY: R10.2 PELVIC AND PERINEAL PAIN,R35.0 FREQ OF MICTURATION. pelvic pain, ablation 200 1, history of D&C's TECHNIQUE: Transvaginal (TV) and Transabdominal (TA) . Transabdominal sonographic images of the pel vis were acquired. Transvaginal sonographic images were medically necessary to better assess the fol lowing anatomy: ovaries Date of LMP: unknown EXAM MEASUREMENTS: Uterus: 7.1 x 3.3 x 4.2 cm Endometrial Stripe: 0.2 cm Right Ovary: unable to visualize Left Ovary: unable to visualize 1. Uterus: heterogeneous isoechoic area posterior body = 3.0 x 3.0 x 2.8cm, hypoechoic area posterior ly = 1.6 x 1.3 x 1.3cm these may represent uterine fibroids 2. Endometrium: fluid within 3. Right Ovary: Obscured by overlying bowel gas 4. Left Ovary: Obscured by overlying bowel gas 5. Bilateral Adnexa: prominent vascularity left adnexa 6. Posterior cul-de-sac: appears wnl IMPRESSION: Isoechoic and hypoechoic masses seen in the uterus may represent uterine fibroids. Please correlate clinically if clinically indicated follow-up ultrasound of the pelvis transabdominal and t ransvaginal may be obtained in 3 months.
--- NOTE | 2021-03-18 16:39 | US ---
EXAMINATION TYPE: US kidneys/renal and bladder DATE OF EXAM: 03/18/2021 COMPARISON: NONE CLINICAL HISTORY: R10.2 PELVIC AND PERINEAL PAIN,R35.0 FREQ OF MICTURATION. frequency and urgency of urination, pelvic pain EXAM MEASUREMENTS: Right Kidney: 9.6 x 3.6 x 3.6 cm Left Kidney: 11.6 x 5.0 x 4.9 cm Right Kidney: no evidence of hydronephrosis Left Kidney: no evidence of hydronephrosis Bladder: appears wnl Bilateral Jets seen: no There is no evidence for hydronephrosis at this point in time. No nephrolithiasis is seen. No darrel s are identified. The urinary bladder is anechoic. Bilateral ureteral jets are seen. IMPRESSION: No hydronephrosis or nephrolithiasis. Bladder is within normal limits. Right kidney smaller than the left and may be congenital, no prior imaging is available for comparison. No significant atherosclero tic disease is seen involving the aorta with CT scan of the chest from 10/27/2019.
== END | disposition home or self-care (01) ==
LOC: RADUSWWP 15:37
PROVIDERS: ATTEND Family Medicine
DX: R10.2 Pelvic and perineal pain (principal)
CPT/HCPCS: 76770; 76830; 76856

== ENCOUNTER → 2021-04-01 | Outpatient (CLI) | payer MEDICARE ==
--- NOTE | 2021-04-01 15:12 | CT ---
EXAMINATION TYPE: CT abdomen pelvis w con DATE OF EXAM: 04/01/2021 HISTORY: Abdominal pain, painful urination and hematuria. CT DLP: 1107.6mGycm Automated Exposure Control for Dose Reduction was Utilized. CONTRAST: CT scan of the abdomen and pelvis is performed with IV Contrast, patient injected with 100ml mL of Is ovue 300. COMPARISON: Renal and pelvic ultrasound 2 weeks ago FINDINGS: LUNG BASES: No significant abnormality is appreciated. LIVER/GB: No significant abnormality is appreciated. PANCREAS: Focal mild generalized atrophy greatest in the mid to distal body. SPLEEN: No significant abnormality is seen. ADRENALS: No significant abnormality is seen. KIDNEYS: Symmetric corticomedullary uptake and excretion without hydronephrosis seen bilaterally. Abn ormal anterior axis or positioning of the left kidney. Smaller right kidney without cortical thinning correlates with ultrasound. No renal calculus or calculus within bladder. BOWEL: Oral contrast reaches level of the proximal transverse colon. [id number] fecal prominenc e in the transverse and left colon extending into proximal sigmoid colon. UTERUS/ADNEXA: Uterus normal in size for a postmenopausal age. Slightly lobulated contour. No suspici ous adnexal masses. Slightly prominent draining left ovarian vein correlates with ultrasound axial im age 67 raising concern for pelvic congestion syndrome. Correlate clinically. LYMPH NODES: No greater than 1cm abdominal or pelvic lymph nodes are appreciated. OSSEOUS STRUCTURES: Posterior disc herniation L2-L3 level effaces the anterior thecal sac sagittal im age 60 and axial image 24. Multilevel facet arthropathy mid to lower lumbar spine. OTHER: No significant additional abnormality is seen. IMPRESSION: No significant acute finding is seen to account for patient's clinical symptoms of pain, dysuria, and hematuria.
== END | disposition home or self-care (01) ==
LOC: RADCTMAIN 12:55
PROVIDERS: ATTEND Family Medicine
DX: R93.429 Abnormal radiologic findings on diagnostic imaging of unspecified kidney (principal); R93.89 Abnormal findings on diagnostic imaging of other specified body structures; N26.1 Atrophy of kidney (terminal); D25.9 Leiomyoma of uterus, unspecified; R30.0 Dysuria; R35.0 Frequency of micturition; R73.01 Impaired fasting glucose
CPT/HCPCS: 82565; 84520; 74177; 36415; Q9967

== ENCOUNTER 2021-12-29 06:03 | Emergency (ER) | payer MEDICARE ==
[2021-12-29 06:25] VITALS: BP 170/92; PULSE 79; RESP 17; TEMP 98
[2021-12-29] MEDS ORDERED: diphenhydrAMINE 50 MG CAP PO STA (07:35)
[2021-12-29] MEDS ORDERED: FAMOTIDINE 20 MG TAB PO STA (07:35)
--- NOTE | 2021-12-29 07:38 | ED ---
General Adult HPI - General Chief complaint: Skin/Abscess/Foreign Body Stated complaint: Hives all over Time Seen by Provider: 12/29/21 07:15 Source: patient, RN notes reviewed, old records reviewed Mode of arrival: ambulatory - History of Present Illness Initial comments: Patient is a 71-year-old female with past medical history remarkable for COPD, A. fib, hypertension, recently diagnosed urinary tract infection started on Macrobid who presents emergency department over concern for a skin ALLERGIC reaction. She believes it is secondary to Macrobid, she denies any new exp osures otherwise, including soaps, detergents, clothing. She states she may have taken Macrobid 1 tablet previously for her UTI. She describes her symptoms as an endocardial rash located over her chest, abdomen, extremities, neck. Extremely itchy. Denies any difficulty breathing, swallowing, nausea, vomiting, diarrhea. Denies any wheezing, coughing, fevers, chills, shortness breath. His no other acute complaint at this time. Symptoms started yesterday morning approximately. She spoke with her PCP over the phone yesterday, she stopped the Macrobid and sensitivity Benadryl. She states she gets some relief from the Benadryl as well as cool showers, however it is continuing and presents emergency department for evaluation. Patient is ALLERGIC to prednisone. She is uncertain regarding other steroids. I evaluated the patient when she is placed in a room at the beginning of my shift. - Related Data Home Medications Medication Instructions Recorded Confirmed Aspirin EC [Ecotrin Low Dose] 81 mg PO HS 02/27/18 04/09/19 Calcium Carbonate/Vitamin D3 1 tab PO DAILY 06/28/18 04/09/19 [Calcium 600-Vit D3 10 mcg (400 Iu)] Fluticasone Nasal [place] [Flonase 2 spr EA NOSTRIL BID PRN 06/28/18 04/09/19 Nasal [place]] Cholecalciferol [Vitamin D3] 5,000 unit PO Q72H 07/17/18 04/09/19 L.acidoph,Paracasei, B.lactis 1 each PO DAILY 07/17/18 04/09/19 [Probiotic] hydroCHLOROthiazide [Hydrodiuril] 25 mg PO Q48H 07/17/18 04/09/19 ALPRAZolam [Xanax] 0.25 mg PO BID PRN 04/08/19 04/09/19 Alendronate Sodium [Fosamax] 70 mg PO MO 04/08/19 04/09/19 DULoxetine HCL [Cymbalta] 30 mg PO DAILY 04/08/19 04/09/19 Previous Rx's Medication Instructions Recorded Apixaban [Eliquis] 5 mg PO BID #60 tab 06/30/18 levoFLOXacin 750 mg PO DAILY 4 Days #4 tablet 10/27/19 EPINEPHrine (Auto Inject) [Epipen] 0.3 mg IM ONCE PRN #1 each 12/29/21 Famotidine [Pepcid] 20 mg PO BID PRN 7 Days #14 tablet 12/29/21 Allergies Allergy/AdvReac Type Severity Reaction Status Date / Time lidocaine Allergy Rash/Hives Verified 12/29/21 06:25 nitrofurantoin Allergy Rash/Hives Verified 12/29/21 06:26 [From Macrobid] prednisone Allergy MUSCLE Verified 12/29/21 06:25 PAIN , HOARSENESS , TROUBLE SWALLOWING Eoxnvfi-OCO-HkT Reductase Allergy MUSCLE AND Verified 12/29/21 06:25 Inhibitor NERVE PAIN [Dozwvad-Qun-Unn Reductase Inhibitor] Review of Systems ROS Statement: Those systems with pertinent positive or pertinent negative responses have been documented in the HPI. Review of Systems: CONST: Denies fever EYES: Denies blurry vision ENT: Denies nasal congestion C/V: Denies Chest pain RESP: Denies shortness of breath GI: Denies abdominal pain : Denies dysuria SKIN: Endorses itching rash MSK: Denies joint pain. NEURO: Denies headache ROS Other: All systems not noted in ROS Statement are negative. Past Medical History Past Medical History: Atrial Fibrillation, COPD, CVA/TIA, Deep Vein Thrombosis (DVT), GERD/Reflux, Hyperlipidemia, Hypertension, Pneumonia, Thyroid Disorder Additional Past Medical History / Comment(s): TIA 06-28-18-no residual weakness, dvt left leg, irregular heart beat, murmur-loop recorder, thyroid nodule and goiter, gallbladder dysfunction History of Any Multi-Drug Resistant Organisms: None Reported Past Surgical History: Tonsillectomy, Uterine Ablation Additional Past Surgical History / Comment(s): D&C,leep procedure, varicose veins stripping, Past Anesthesia/Blood Transfusion Reactions: No Reported Reaction Additional Past Anesthesia/Blood Transfusion Reaction / Comment(s): blood transfusion in past-no reaction to it Past Psychological History: Anxiety, Depression Smoking Status: Never smoker Past Alcohol Use History: None Reported Past Drug Use History: None Reported - Past Family History Mother Family Medical History: Congestive Heart Failure (CHF), Hypertension Additional Family Medical History / Comment(s): Parkinson Father Family Medical History: COPD Additional Family Medical History / Comment(s): 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 HEAD: Normal with no signs of head trauma. EYES: PERRLA, EOMI, conjunctiva normal, no discharge. ENT: Hearing grossly intact, normal oropharynx. No tongue swelling. Posterior oropharynx unremarkable. No stridor. RESPIRATORY: Clear breath sounds bilaterally. No wheezes, rales, or rhonchi. C/V: Regular rate and rhythm. S1 and S2 auscultated, no edema, peripheral pulses 2+ and intact throughout ABD: Abd is soft, nontender, nondistended EXT: Normal range of motion, no obvious deformity SKIN: Patient has an urticarial rash located over the extremities, abdomen, chest and back. Patient has some excoriations as well. NEURO: Alert and oriented 4. No focal deficits. Course Vital Signs 12/29/21 06:21 Temperature 98 F Pulse Rate 79 Respiratory 17 Rate Blood Pressure 170/92 O2 Sat by Pulse 96 Oximetry Medical Decision Making - Medical Decision Making Based on the patient's presentation and physical exam, does appear she is having a localized skin ALLERGIC reaction to what is strongly suspected to be her Macrobid medication. She stopped taking it. She is taking Benadryl at home for it. She is no signs or symptoms of anaphylaxis at this time. I discussed with her continuing to stop taking the Macrobid. She does not require a refill, and she did nearly complete the course. She completed a total of 6 days. Patient has an ALLERGY to prednisone. I of the patient famotidine here as well as an EpiPen for home emergencies and the case of anaphylaxis. I discussed proper EpiPen usage. They were in agreement this plan. I recommended she follow up with her PCP in she was in agreement this plan. I do not believe that laboratory studies or imaging are required at this time. Patient will be discharged home with her prescriptions following a menstruation famotidine and Benadryl here in the department. Patient is on Claritin, and I recommended that she take that to see if it improves her symptoms as well. I will provide the patient with a prescription for famotidine, EpiPen. I instruc katarina the patient to follow up with their PCP in the next 3 days. I explained that the patient should return to the emergency department if they experience any worsening symptoms. Strict return precautions were discussed with the patient. The patient expressed understanding of these instructions. I answered all questions that the patient had. The patient was discharged home in good condition with their prescriptions and follow up information. Disposition Clinical Impression: Allergic reaction, Urticaria Disposition: HOME SELF-CARE Condition: Good Instructions (If sedation given, give patient instructions): Urticaria (ED), Allergies (ED), Cold Compress or Soak (ED) Prescriptions: EPINEPHrine (Auto Inject) [Epipen] 0.3 mg IM ONCE PRN #1 each PRN Reason: Anaphylaxis Famotidine [Pepcid] 20 mg PO BID PRN 7 Days #14 tablet PRN Reason: Rash Is patient prescribed a controlled substance at d/c from ED?: No Referrals: Yuri Almendarez DO [Primary Care Provider] - 1-2 days
== END 2021-12-29 08:04 | disposition home or self-care (01) ==
LOC: EC 06:03
DX: L50.9 Urticaria, unspecified (principal); I10 Essential (primary) hypertension; Z86.73 Personal history of transient ischemic attack (TIA), and cerebral infarction without residual deficits; Z88.4 Allergy status to anesthetic agent; Z88.3 Allergy status to other anti-infective agents; Z88.8 Allergy status to other drugs, medicaments and biological substances
CPT/HCPCS: 99283

== ENCOUNTER → 2022-02-28 | Outpatient (CLI) | payer MEDICARE ==
--- NOTE | 2022-02-28 15:50 | BD ---
EXAMINATION TYPE: Axial Bone Density DATE OF EXAM: 02/28/2022 COMPARISON: 11/01/2018 CLINICAL HISTORY: 72 years year old Female. ICD-10 CODE: M85.9 DISORDER OF BONE DENSITY Height: 68.5 IN Weight: 201 LBS FRAX RISK QUESTIONS: Family History (Parent hip fracture): YES MOTHER History of Fracture in Adulthood: LT TIBIA FX AGE 68 RISK FACTORS HISTORY OF: Family History of Osteoporosis: YES MOTHER/ SISTER Active: YES Diet low in dairy products/other sources of calcium: YES Postmenopausal woman: AGE 55 Take estrogen and/or progesterone medications: NOT NOW How long: TOOK FOR 2 YEARS MEDICATIONS: Osteoporosis Medications: NOT NOW Which medication: Fosamax How Lon YEAR Additional Medications: CALCIUM, VIT D, ELIQUIS, METOPROLOL, EXAM MEASUREMENTS: Bone mineral densitometry was performed using the ROLI System. Bone mineral density as measured about the Lumbar spine is: ----- L1-L4(G/cm2): 0.888 T Score Values are as follows: ----- L1: -2.5 ----- L2: -3.5 ----- L3: -1.6 ----- L4: -2.5 ----- L1-L4: -2.4 Bone mineral density has: Decreased -9.1% since study of: 11/01/2018 Bone mineral density about the R hip (g/cm2): 0.645 Bone mineral density about the L hip (g/cm2): 0.605 T Score values are as follows: -----R Neck: -2.8 -----L Neck: -3.1 -----R Total: -2.7 -----L Total: -3.0 Bone mineral density has: Increased 1.4% since study of: 11/01/2018 FRAX%s: The graph provided illustrates a 48.1 chance for a major osteoporotic fx and a 28.3 chance fo r the hips probability for fx in 10 years time. IMPRESSION: Osteoporosis (T Score less than -2.5). There is increased fracture risk and therapy is usually indicated based on age. Re-Screen 1-2 years. NOTE: T-SCORE=SD OF THE YOUNG ADULT MEAN.
--- NOTE | 2022-03-02 09:02 | MM ---
Reason for exam: screening (asymptomatic). Last mammogram was performed 1 year and 2 months ago. History: Patient is postmenopausal. Took hormonal contraceptives for 12 years. Took progesterone for 2 years. Physical Findings: A clinical breast exam by your physician is recommended on an annual basis and results should be correlated with mammographic findings. MG 3D Screening Mammo W/Cad Bilateral CC and MLO view(s) were taken. Prior study comparison: January 12, 2021, bilateral MG 3d screening mammo w/cad. November 26, 2019, bilateral MG 3d screening mammo w/cad. The breast tissue is heterogeneously dense. This may lower the sensitivity of mammography. There is no discrete abnormality. Left loop recorder redemonstrated. ASSESSMENT: Benign, BI-RAD 2 RECOMMENDATION: Routine screening mammogram of both breasts in 1 year.
== END | disposition home or self-care (01) ==
LOC: RADMAMWWP 13:51
PROVIDERS: ATTEND Family Medicine
DX: Z12.31 Encounter for screening mammogram for malignant neoplasm of breast (principal); M85.9 Disorder of bone density and structure, unspecified
CPT/HCPCS: 77063; 77067; 77080

== ENCOUNTER → 2023-04-21 | Outpatient (CLI) | payer MEDICARE ==
--- NOTE | 2023-04-21 17:10 | XR ---
EXAMINATION TYPE: XR chest 2V DATE OF EXAM: 04/21/2023 5:01 PM COMPARISON: Chest radiographs from 03/10/2020 TECHNIQUE: XR chest 2V Frontal and lateral views of the chest. CLINICAL INDICATION:Female, 73 years old with history of R059 COUGH; FINDINGS: Lungs/Pleura: There is flattening of the diaphragm with increased lucency of the lungs. Hyperinflatio n. No evidence of pneumothorax, pleural effusion or focal consolidation. Chronic senescent parenchyma l change. Pulmonary vascularity: Unremarkable. Heart/mediastinum: Cardiomediastinal silhouette is unremarkable. Musculoskeletal: No acute osseous pathology. Other findings: Loop recorder in the anterior left chest wall. IMPRESSION: 1. No acute cardiopulmonary disease process. 2. COPD changes.
== END | disposition home or self-care (01) ==
LOC: RADXRYALE 16:50
PROVIDERS: ATTEND Family Medicine
DX: J44.9 Chronic obstructive pulmonary disease, unspecified (principal); R05.9 Cough, unspecified
CPT/HCPCS: 71046

== ENCOUNTER 2024-02-16 14:38 | Emergency (ER) | payer MEDICARE ==
[2024-02-16 15:02] VITALS: RESP 18
--- NOTE | 2024-02-16 15:16 | ED ---
Fall HPI - General Chief Complaint: Fall Stated Complaint: Fall - injury R wrist/L ankle Time Seen by Provider: 02/16/24 14:54 Source: patient, RN notes reviewed Mode of arrival: ambulatory Limitations: no limitations - History of Present Illness Initial Comments: 74-year-old female presents emergency department chief complaint of left ankle right wrist pain. Patient states she had a fall today. She denies any head injury loss conscious. States she has pain in the wrist movement of left ankle swelling. Denies any other injuries from her fall. No loss conscious. - Related Data Home Medications Medication Instructions Recorded Confirmed Aspirin EC [Ecotrin Low Dose] 81 mg PO HS 02/27/18 04/09/19 Calcium Carbonate/Vitamin D3 1 tab PO DAILY 06/28/18 04/09/19 [Calcium 600-Vit D3 10 mcg (400 Iu)] Fluticasone Nasal [place] [Flonase 2 spr EA NOSTRIL BID PRN 06/28/18 04/09/19 Nasal [place]] Cholecalciferol [Vitamin D3] 5,000 unit PO Q72H 07/17/18 04/09/19 L.acidoph,Paracasei, B.lactis 1 each PO DAILY 07/17/18 04/09/19 [Probiotic] hydroCHLOROthiazide [Hydrodiuril] 25 mg PO Q48H 07/17/18 04/09/19 ALPRAZolam [Xanax] 0.25 mg PO BID PRN 04/08/19 04/09/19 Alendronate Sodium [Fosamax] 70 mg PO MO 04/08/19 04/09/19 DULoxetine HCL [Cymbalta] 30 mg PO DAILY 04/08/19 04/09/19 Previous Rx's Medication Instructions Recorded Apixaban [Eliquis] 5 mg PO BID #60 tab 06/30/18 levoFLOXacin 750 mg PO DAILY 4 Days #4 tablet 10/27/19 EPINEPHrine (Auto Inject) [Epipen] 0.3 mg IM ONCE PRN #1 each 12/29/21 Famotidine [Pepcid] 20 mg PO BID PRN 7 Days #14 tablet 12/29/21 Allergies Allergy/AdvReac Type Severity Reaction Status Date / Time lidocaine Allergy Rash/Hives Verified 02/16/24 14:50 nitrofurantoin Allergy Rash/Hives Verified 02/16/24 14:50 [From Macrobid] prednisone Allergy MUSCLE Verified 02/16/24 14:50 PAIN , HOARSENESS , TROUBLE SWALLOWING Fwdnklr-RQP-UkO Reductase Allergy MUSCLE AND Verified 02/16/24 14:50 Inhibitor NERVE PAIN [Yacnpki-Jqf-Bba Reductase Inhibitor] Review of Systems ROS Statement: Those systems with pertinent positive or pertinent negative responses have been documented in the HPI. ROS Other: All systems not noted in ROS Statement are negative. Past Medical History Past Medical History: Atrial Fibrillation, COPD, CVA/TIA, Deep Vein Thrombosis (DVT), GERD/Reflux, Hyperlipidemia, Hypertension, Pneumonia, Thyroid Disorder Additional Past Medical History / Comment(s): TIA 06-28-18-no residual weakness, dvt left leg, irregular heart beat, murmur-loop recorder, thyroid nodule and goiter, gallbladder dysfunction History of Any Multi-Drug Resistant Organisms: None Reported Past Surgical History: Tonsillectomy, Uterine Ablation Additional Past Surgical History / Comment(s): D&C,leep procedure, varicose veins stripping, Past Anesthesia/Blood Transfusion Reactions: No Reported Reaction Additional Past Anesthesia/Blood Transfusion Reaction / Comment(s): blood tra nsfusion in past-no reaction to it Past Psychological History: Anxiety, Depression Smoking Status: Never smoker Past Alcohol Use History: None Reported Past Drug Use History: None Reported - Past Family History Mother Family Medical History: Congestive Heart Failure (CHF), Hypertension Additional Family Medical History / Comment(s): Parkinson Father Family Medical History: COPD Additional Family Medical History / Comment(s): 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 Sister(s) Family Medical History: Cancer Additional Family Medical History / Comment(s): THYROID CANCER General Exam Limitations: no limitations General appearance: alert, in no apparent distress Head exam: Present: atraumatic, normocephalic, normal inspection Neck exam: Present: normal inspection, full ROM. Absent: tenderness, meningismus, lymphadenopathy Respiratory exam: Present: normal lung sounds bilaterally. Absent: respiratory distress, wheezes, rales, rhonchi, stridor Cardiovascular Exam: Present: regular rate, normal rhythm, normal heart sounds. Absent: systolic murmur, diastolic murmur, rubs, gallop, clicks Extremities exam: Present: other (Right wrist there is diffuse tenderness Nobbs deformity neurovascular intact no tenderness proximal or distal right wrist there is moderate left ankle swelling with tenderness over the malleoli region no proximal tib-fib tenderness) Course Vital Signs 02/16/24 02/16/24 14:48 16:04 Temperature 98.2 F 98.0 F Pulse Rate 72 70 Respiratory 18 18 Rate Blood Pressure 151/66 146/70 O2 Sat by Pulse 99 100 Oximetry Procedures - Orthopedic Splinting/Casting Injury #1 Side: right Upper Extremity Injury Location: wrist Upper Extremity Immobilizer: volar splint, synthetic pre-padded splint Additional Comments: Neurovascular intact before and after procedure Medical Decision Making - Medical Decision Making Was pt. sent in by a medical professional or institution (, MAME, SUSTAINABILITY EXECUTIVE DIRECTOR, urgent care, hospital, or group home...) When possible be specific @ -No Did you speak to anyone other than the patient for history (EMS, parent, family, police, friend...)? What history was obtained from this source @ -No Did you review nursing and triage notes (agree or disagree)? Why? @ -I reviewed and agree with nursing and triage notes Were old charts reviewed (outside hosp., previous admission, EMS record, old EKG, old radiological studies, urgent care reports/EKG's, group home records)? Report findings @ -No old charts were reviewed Differential Diagnosis (chest pain, altered mental status, abdominal pain women, abdominal pain men, vaginal bleeding, weakness, fever, dyspnea, syncope, headache, dizziness, GI bleed, back pain, seizure, CVA, palpatations, mental health, musculoskeletal)? @ -Fall, ankle fracture, ankle sprain wrist pain, wrist fracture EKG interpreted by me (3pts min.). @ -None X-rays interpreted by me (1pt min.). @ -X-ray right wrist shows distal ulnar styloid fracture X-ray left ankle no acute fracture soft tissue swelling noted CT interpreted by me (1pt min.). @ -None done U/S interpreted by me (1pt. min.). @ -None done What testing was considered but not performed or refused? (CT, X-rays, U/S, labs)? Why? @ -None What meds were considered but not given or refused? Why? @ -None Did you discuss the management of the patient with other professionals (professionals i.e. , MAME, SUSTAINABILITY EXECUTIVE DIRECTOR, lab, RT, psych nurse, certified social workers in health care, corporate wellness coordinator, teacher, airfield services officer, test case developer)? Give summary @ -No Was smoking cessation discussed for >3mins.? @ -No Was critical care preformed (if so, how long)? @ -No Were there social determinants of health that impacted care today? How? (Homele ssness, low income, unemployed, alcoholism, drug addiction, transportation, low edu. Level, literacy, decrease access to med. care, skilled nursing, rehab)? @ -No Was there de-escalation of care discussed even if they declined (Discuss DNR or withdrawal of care, Hospice)? DNR status @ -No What co-morbidities impacted this encounter? (DM, HTN, Smoking, COPD, CAD, Cancer, CVA, ARF, Chemo, Hep., AIDS, mental health diagnosis, sleep apnea, morbid obesity)? @ -None Was patient admitted / discharged? Hospital course, mention meds given and route, prescriptions, significant lab abnormalities, going to OR and other pertinent info. @ -[Large patient has a right wrist fracture was splinted will follow-up with orthopedics x-ray of the ankle was negative and stirrup Aircast was applied. Patient provided analgesics. Undiagnosed new problem with uncertain prognosis? @ -No Drug Therapy requiring intensive monitoring for toxicity (Heparin, Nitro, Insulin, Cardizem)? @ -No Were any procedures done? @ -No Diagnosis/symptom? @ -Fall, ankle sprain, wrist fracture Acute, or Chronic, or Acute on Chronic? @ -Acute Uncomplicated (without systemic symptoms) or Complicated (systemic symptoms)? @ -Uncomplicated Side effects of treatment? @ -No Exacerbation, Progression, or Severe Exacerbation? @ -No Poses a threat to life or bodily function? How? (Chest pain, USA, MS, pneumonia, PE, COPD, DKA, ARF, appy, cholecystitis, CVA, Diverticulitis, Homicidal, Suicidal, threat to staff... and all critical care pts) @ -No Disposition Clinical Impression: Fall, Left ankle sprain, Fracture of right ulnar styloid Disposition: HOME SELF-CARE Condition: Stable Instructions (If sedation given, give patient instructions): Arm Fracture in Adults (ED) Additional Instructions: Please return to the Emergency Department if symptoms worsen or any other concerns. Is patient prescribed a controlled substance at d/c from ED?: No Referrals: Yuri Almendarez DO [Primary Care Provider] - 1-2 days Dexter Bahena MD [STAFF PHYSICIAN] - 1-2 days Time of Disposition: 15:52
--- NOTE | 2024-02-16 15:24 | XR ---
Right wrist HISTORY: Painful internal COMPARISON: None. TECHNIQUE: 4 views of right wrist are obtained. FINDINGS: There is mild diffuse osteopenia. There is a nondisplaced fracture of the ulnar styloid. The distal radius is intact. Carpal bones and articulations are normal. There are no soft tissue abnormalities. IMPRESSION: 1. Nondisplaced fracture the ulnar styloid. 2. Diffuse osteopenia.
--- NOTE | 2024-02-16 15:25 | XR ---
Left ankle HISTORY: Pain following trauma COMPARISON: None TECHNIQUE: 3 views of left ankle were obtained. FINDINGS: There is moderate osteopenia. There is mild soft tissue swelling over the lateral malleolus. There is no fracture, dislocation or focal intraosseous abnormality. The ankle mortise is intact. IMPRESSION: 1. Moderate osteopenia. 2. Mild lateral soft tissue swelling. 3. No fracture or dislocation.
[2024-02-16 16:21] VITALS: BP 146/70; PULSE 70; TEMP 98
== END 2024-02-16 16:07 | disposition home or self-care (01) ==
LOC: EC 14:38
DX: S52.614A Nondisplaced fracture of right ulna styloid process, initial encounter for closed fracture (principal); S93.402A Sprain of unspecified ligament of left ankle, initial encounter; Z88.1 Allergy status to other antibiotic agents; Z88.8 Allergy status to other drugs, medicaments and biological substances; Z86.73 Personal history of transient ischemic attack (TIA), and cerebral infarction without residual deficits; W01.0XXA Fall on same level from slipping, tripping and stumbling without subsequent striking against object, initial encounter
CPT/HCPCS: 29125; 99284

== ENCOUNTER → 2024-06-18 | Outpatient (CLI) | payer MEDICARE ==
--- NOTE | 2024-07-19 11:51 | XR ---
Site ID [facility] Patient Tamara Serna ID [id number] Age/Gender: 74Y, F Order # N/A Procedure DI CHEST PA AND LAT Date 06/18/2024 2:46:00 PM EXAMINATION TYPE: Chest X-ray 2 Views DATE OF EXAM: 06/27/2024 CLINICAL HISTORY: Cough TECHNIQUE: Frontal and lateral views of the chest are obtained. COMPARISON: Chest radiograph 04/21/2023 FINDINGS: There is no focal air space opacity, pleural effusion, or pneumothorax seen. Flattening o f the diaphragm with increased lucency in the lungs. The cardiac silhouette size is within normal morin its. Loop recorder identified within the left chest wall overlying the heart. The osseous structures are intact. Multilevel degenerative disc disease. Atherosclerotic calcification of the aorta. IMPRESSION: 1. No acute cardiopulmonary disease process. 2. COPD changes.
== END | disposition home or self-care (01) ==
LOC: RADXRYALE 14:40
PROVIDERS: ATTEND Physician Assistant Medical
DX: J44.9 Chronic obstructive pulmonary disease, unspecified (principal)
CPT/HCPCS: 71046

== ENCOUNTER → 2024-10-11 | Outpatient (CLI) | payer MEDICARE ==
--- NOTE | 2024-10-11 10:33 | XR ---
Right ankle HISTORY: Pain following fall. COMPARISON: None. TECHNIQUE: 3 views right ankle were obtained. There is mild osteopenia. There is no fracture, dislocation, intraosseous or intra-articular abnormality. The soft tissues are unremarkable. The ankle mortise is intact. IMPRESSION: Mild osteopenia with no other significant abnormality seen. There is no evidence of acute trauma. [facility], , 10/11/2024 10:31 AM
== END | disposition home or self-care (01) ==
LOC: RADXRYALE 10:12
PROVIDERS: ATTEND Physician Assistant
DX: M25.571 Pain in right ankle and joints of right foot (principal); M85.88 Other specified disorders of bone density and structure, other site

== ENCOUNTER → 2024-11-13 | Outpatient (CLI) | payer MEDICARE ==
--- NOTE | 2024-11-13 10:14 | XR ---
EXAMINATION TYPE: XR chest 2V DATE OF EXAM: 11/13/2024 9:34 AM COMPARISON: Chest x-ray June 18, 2024 CLINICAL INDICATION: Female, 74 years old with history of R051 ACUTE COUGH, TECHNIQUE: Frontal and lateral views of the chest are obtained. FINDINGS: Underlying emphysematous change is thought present. There is no layering pleural effusion o r pneumothorax seen. Linear opacity lateral right mid to upper lung . Left lung remains clear. The ca rdiac silhouette size is stable and within normal limits. Overlying loop recorder is redemonstrated. The osseous structures are intact. IMPRESSION: Chronic emphysematous change with new right lung linear opacity could reflect tiny trappe d pleural fluid and adjacent mild atelectasis and/or acute infiltrate. [facility], , 11/13/2024 10:12 AM
== END | disposition home or self-care (01) ==
LOC: RADXRYALE 09:04
PROVIDERS: ATTEND Physician Assistant Medical
DX: J43.9 Emphysema, unspecified (principal); R05.1 Acute cough; R91.8 Other nonspecific abnormal finding of lung field
CPT/HCPCS: 71046

== ENCOUNTER 2025-01-07 13:07 | Day surgery (SDC) | payer MEDICARE ==
[2025-01-03 13:38] VITALS: BMI 28.5
[2025-01-07] MEDS: IV FLUID CONTINUATION 1,000 ML IV ONE (13:21)
[2025-01-07 13:26] VITALS: TEMP 97.6
[2025-01-07] MEDS: ATROPINE SULFATE 0.4 MG/ML 1 ML VIAL IM ONE (13:49)
[2025-01-07] MEDS ORDERED: PROPOFOL 10 MG/ML 20 ML VIAL IV ONE (13:55)
[2025-01-07] MEDS ORDERED: KETAMINE HCL IN 0.9 % NACL 50 MG/5 ML SYRINGE ONE (13:55)
[2025-01-07] MEDS: ACETAMINOPHEN TAB 500 MG TAB PO STA (14:53)
[2025-01-07 15:02] VITALS: BP 143/75; PULSE 84; RESP 18
--- NOTE | 2025-01-07 19:47 | PCN ---
PROCEDURE NOTE PROCEDURES PERFORMED: Bronchoscopy, airway examination, therapeutic lavage, BAL right middle lobe, BAL lingula, and brushes in the lingula. PREOPERATIVE DIAGNOSIS: Rule out Mycobacterium avium complex infection. POSTOPERATIVE DIAGNOSIS: Rule out Mycobacterium avium complex infection. TEACHER DANCING: Dr. Bravo. FIRST COURT MESSENGER: Dr. Olya Ayala. The patient's procedure took place in room #2. Anesthesia provided monitored anesthesia care. There was informed consent and universal timeout. After the patient was adequately sedated and being fully monitored, the bronchoscope was inserted through the right nostril. It passed through the right nasopharynx into the oropharynx. The hypopharynx was identified. The hypopharyngeal structures, including anterior commissure, true cords, false cords, arytenoids, piriform sinuses, right and left, vallecula, and epiglottis, all appeared normal. The bronchoscope was pushed through the glottic opening into the trachea. Trachea appeared relatively normal. There were a few scattered secretions in the trachea. The tracheal thanh was sharp. The right and left mainstem were initially evaluated. The patient had a lidocaine allergy. We could not use lidocaine to topicalize the glottic opening or the more distal airways. The right upper lobe and its 3 segments, right middle lobe and its 2 segments, right lower lobe and its 5 segments, left upper lobe and its 2 segments, lingula and its 2 segments, and left lower lobe and its 4 segments all had similar findings of diffuse mild to moderate bronchitis changes. The airways were hyperemic and erythematous. There were secretions noted throughout. There was no dominant mass or tumor. There was some mucosal friability. Next, we did brushes at the lingula. Slides were made. In addition, we did a formal BAL of the lingula. More than 30 mL of turbid fluid was recovered. After that, we went over to the right side and did a formal BAL in the right middle lobe. Again, more than 30 mL of turbid fluid recovered. The patient tolerated the procedure well. The specimen was sent to the laboratory for analysis. There was no immediate complication. The patient will be recovered. MMODL / IJN: [id number] /
[2025-01-08 05:28] LABS: Appearance,BF Cloudy (Clear); RBC, Body Fluid 1663 /UL (0-2000)
[2025-01-09 09:33] LABS: Nucleated Cells, Body Fluid 125 /UL
== END 2025-01-07 15:40 | disposition home or self-care (01) ==
LOC: ORWHC2ENDO 13:07
PROVIDERS: ATTEND Internal Medicine Critical Care Medicine
DX: J44.9 Chronic obstructive pulmonary disease, unspecified (principal); I48.0 Paroxysmal atrial fibrillation; E78.5 Hyperlipidemia, unspecified; I10 Essential (primary) hypertension; Z86.73 Personal history of transient ischemic attack (TIA), and cerebral infarction without residual deficits; Z79.01 Long term (current) use of anticoagulants
CPT/HCPCS: 89050; 87070; 87205; 87116; 87102; 87206; 31623; 31624; J0461; J2704; 88104; 88108; 88305

== ENCOUNTER → 2025-04-17 | Outpatient (CLI) | payer MEDICARE ==
--- NOTE | 2025-04-17 09:26 | BD ---
EXAMINATION TYPE: Axial Bone Density DATE OF EXAM: 04/17/2025 CLINICAL HISTORY: 75 years old Female. ICD-10 CODE: M85.9 DISORDER OF BONE , Additional History: Height: 69 Weight: 195.3 FRAX RISK QUESTIONS: Alcohol (3 or more units per day): no Family History (Parent hip fracture): yes Glucocorticoids (More than 3mos): no (Ex: prednisone, prednisolone, methylprednisolone, dexamethasone, and hydrocortisone). History of Fracture in Adulthood: yes Secondary Osteoporosis: 1. Type 1 Diabetes: no 2. Hyperthyroidism: no 3. Menopause before 45: no 4. Malnutrition: no 5. Chronic liver disease: no Rheumatoid Arthritis: no Current Tobacco Use: no RISK FACTORS HISTORY OF: Surgery to Spine/Hip(right/left)/Wrist (right/left): no EXAM MEASUREMENTS: Bone mineral densitometry was performed using the [employer] System. Bone mineral density as measured about the Lumbar spine is: ----- L1-L4(G/cm2): 0.952 T Score Values are as follows: ----- L1: -2.1 ----- L2: -3.2 ----- L3: -1.4 ----- L4: -1.0 ----- L1-L4: -1.9 Z Score Values are as follows: ----- L1: -1.2 ----- L2: -2.2 ----- L3: -0.4 ----- L4: 0.0 ----- L1-L4: -0.9 Bone mineral density has: increased 7.2 % since study of: 02.28.2022 Bone mineral density about the R hip (g/cm2): 0.642 Bone mineral density about the L hip (g/cm2): 0.593 T Score values are as follows: -----R Neck: -3.0 -----L Neck: -3.5 -----R Total: -2.9 -----L Total: -3.3 Z Score values are as follows: -----R Neck: -1.6 -----L Neck: -2.1 -----R Total: -1.7 -----L Total: -2.1 Bone mineral density has: decreased -4.9 % since study of: 4.25.2021 FRAX%s: The graph provided illustrates a 64.7% chance for a major osteoporotic fx and a 53.5% chance for the hips probability for fx in 10 years time. IMPRESSION: Osteoporosis (T Score less than -2.5). There is increased fracture risk and therapy is usually indicated based on age. Re-Screen 1-2 years. NOTE: T-SCORE=SD OF THE YOUNG ADULT MEAN. [facility], , 04/17/2025 9:24 AM
--- NOTE | 2025-04-17 16:15 | MM ---
Reason for Exam: Screening (asymptomatic). Last mammogram was performed 3 year(s) and 2 month(s) ago. Patient History: Menarche at age 13. First Full-Term at age 20. Postmenopausal. Patient used Progesterone for 2 years. Patient used Hormonal Contraceptives for 12 years. Risk Values: Rosie 5 year model risk: 1.6%. NCI Lifetime model risk: 3.4%. Prior Study Comparison: 11/26/2019 Bilateral Screening Mammogram, [facility]. 01/12/2021 Bilateral Screening Mammogram, [facility]. 02/28/2022 Bilateral Screening Mammogram, [facility]. Tissue Density: The breasts are heterogeneously dense, which may obscure small masses. Findings: Analyzed By CAD. There is no suspicious group of microcalcifications or new suspicious mass in either breast. Metallic subcutaneous device limits portions of the left breast. Overall Assessment: Benign, BI-RAD 2 Management: Screening Mammogram of both breasts in 1 year. . Patient should continue monthly self-breast exams. A clinical breast exam by your physician is recommended on an annual basis. This exam should not preclude additional follow-up of suspicious palpable abnormalities. Note on Rosie scores and lifetime risk: 1. A Rosie score greater than 3% is considered moderate risk. If this is the case, consider specialist referral to assess eligibility for a risk reducing agent. 2. If overall lifetime risk for the development of breast cancer is 20% or higher, the patient may qualify for future screening with alternating mammogram and breast MRI. [facility], , 04/17/2025 9:23 AM. Electronically signed and approved by: Johnnie Pandya M.D. Radiologis
== END | disposition home or self-care (01) ==
LOC: RADBDWWP 08:30
PROVIDERS: ATTEND Family Medicine
DX: Z12.31 Encounter for screening mammogram for malignant neoplasm of breast (principal); M81.0 Age-related osteoporosis without current pathological fracture; M85.9 Disorder of bone density and structure, unspecified; R92.333 Mammographic heterogeneous density, bilateral breasts; Z78.0 Asymptomatic menopausal state; Z92.0 Personal history of contraception
CPT/HCPCS: 77063; 77067; 77080

== ENCOUNTER 2025-06-05 13:12 | Emergency (ER) | payer MEDICARE ==
[2025-06-05 13:17] VITALS: TEMP 98.4
--- NOTE | 2025-06-05 13:48 | ED ---
General Adult HPI - General Chief complaint: Arrhythmia/Palpitations Stated complaint: Abn heart rate Time Seen by Provider: 06/05/25 13:14 Source: patient Mode of arrival: ambulatory Limitations: no limitations - History of Present Illness Initial comments: Dictation was produced using [employer] dictation software. please excuse any grammatical, word or spelling errors. Chief Complaint: 75-year-old female with dizziness and shortness of breath History of Present Illness: Patient 75-year-old female presents emergency department with 1 to 2 days of dizziness and shortness of breath. Patient has a history of COPD. Denies any other symptoms. Recently been worked up by cardiology for palpitations. She had worn a Holter monitor for extended period of time. She had a Holter monitor reviewed and there were no abnormalities noted. Patient denies any fever chills or night sweats. Denies any pain complaints. She does report a history of DVT. The ROS documented in this emergency department record has been reviewed and confirmed by me. Those systems with pertinent positive or negative responses have been documented in the HPI. All other systems are other negative and/or noncontributory. - Related Data Home Medications Medication Instructions Recorded Confirmed Calcium Carbonate/Vitamin D3 1 tab PO DAILY 06/28/18 01/07/25 [Calcium 600-Vit D3 10 mcg (400 Iu)] Fluticasone Nasal Sycamore [Flonase 2 spr EA NOSTRIL BID PRN 06/28/18 01/07/25 Nasal [place]camore] Cholecalciferol [Vitamin D3] 5,000 unit PO DAILY 07/17/18 01/07/25 L.acidoph,Paracasei, B.lactis 1 each PO DAILY 07/17/18 01/07/25 [Probiotic] ALPRAZolam [Xanax] 0.25 mg PO BID PRN 04/08/19 01/07/25 DULoxetine HCL [Cymbalta] 30 mg PO DAILY 04/08/19 01/07/25 Cranberry Fruit Extract [Cranberry] 500 mg PO DAILY 01/03/25 01/07/25 Fluticasone/Umeclidin/Vilanter 1 inhalation INHALATION Q24H 01/03/25 01/07/25 [Trelegy Ellipta 100-62.5-25] Losartan Potassium 50 mg PO DAILY 01/03/25 01/07/25 Metoprolol Succinate [Metoprolol 25 mg PO DAILY 01/03/25 01/07/25 Succinate ER] Multivitamin [Multivitamins Adult 1 each PO DAILY 01/03/25 01/07/25 Gummies] Simvastatin [Zocor] 20 mg PO HS 01/03/25 01/07/25 Previous Rx's Medication Instructions Recorded Apixaban [Eliquis] 5 mg PO BID #60 tab 06/30/18 Famotidine [Pepcid] 20 mg PO BID PRN 7 Days #14 tablet 12/29/21 Allergies Allergy/AdvReac Type Severity Reaction Status Date / Time lidocaine Allergy Rash/Hives Verified 06/05/25 13:17 nitrofurantoin Allergy Rash/Hives Verified 06/05/25 13:17 [From Macrobid] prednisone Allergy MUSCLE Verified 06/05/25 13:17 PAIN , HOARSENESS , TROUBLE SWALLOWING Review of Systems ROS Statement: Those systems with pertinent positive or pertinent negative responses have been documented in the HPI. ROS Other: All systems not noted in ROS Statement are negative. Past Medical History Past Medical History: Atrial Fibrillation, COPD, CVA/TIA, Deep Vein Thrombosis (DVT), GERD/Reflux, Hyperlipidemia, Hypertension, Pneumonia, Thyroid Disorder Additional Past Medical History / Comment(s): TIA 06-28-18-no residual weakness, dvt left leg, irregular heart beat, murmur-loop recorder, thyroid nodule and goiter, gallbladder dysfunction History of Any Multi-Drug Resistant Organisms: None Reported Past Surgical History: Heart Catheterization, Tonsillectomy, Uterine Ablation Additional Past Surgical History / Comment(s): D&C,leep procedure, varicose veins stripping, colonoscopy, Past Anesthesia/Blood Transfusion Reactions: No Reported Reaction Additional Past Anesthesia/Blood Transfusion Reaction / Comment(s): blood transfusion in past-no reaction to it Past Psychological History: Anxiety, Depression Smoking Status: Never smoker Past Alcohol Use History: None Reported Past Drug Use History: None Reported - Past Family History Mother Family Medical History: Congestive Heart Failure (CHF), Hypertension Additional Family Medical History / Comment(s): Parkinson Father Family Medical History: COPD Additional Family Medical History / Comment(s): worked in a [employer] and smoked- from emphysema Sister(s) Family Medical History: Cancer Additional Family Medical History / Comment(s): THYROID CANCER Daughter(s) Family Medical History: Cancer Additional Family Medical History / Comment(s): thyroid General Exam - General Exam Comments Initial Comments: PHYSICAL EXAM: General Impression: Alert and oriented x3, not in acute distress HEENT: Normocephalic atraumatic, extra-ocular movements intact, pupils equal and reactive to light bilaterally, mucous membranes moist. Cardiovascular: Heart regular rate and rhythm Chest: Able to complete full sentences, no retractions, no tachypnea Abdomen: abdomen soft, non-tender, non-distended, no organomegaly Musculoskeletal: Pulses present and equal in all extremities, no peripheral edema Motor: no focal deficits noted Neurological: CN II-XII grossly intact, no focal motor or sensory deficits noted Skin: Intact with no visualized rashes Psych: Normal affect and mood Limitations: no limitations Course Vital Signs 06/05/25 06/05/25 06/05/25 13:14 13:16 14:16 Temperature 98.4 F Pulse Rate 116 H 65 86 Respiratory 18 16 16 Rate Blood Pressure 172/107 149/90 149/92 O2 Sat by Pulse 97 98 98 Oximetry 06/05/25 15:00 Temperature Pulse Rate 80 Respiratory 16 Rate Blood Pressure 139/99 O2 Sat by Pulse 98 Oximetry EKG Findings - EKG Comments: EKG Findings:: My EKG interpretation: Ventricular rate 79, sinus rhythm, MN interval 163, QRS 83, QTc 397. No MN prolongation, no QTC prolongation, no ST or T-wave changes noted. Overall, this EKG is unremarkable Medical Decision Making - Medical Decision Making Was pt. sent in by a medical professional or institution (, PA, DATA SYSTEMS MANAGER, urgent care, hospital, or senior living...) When possible be specific @ -No Did you speak to anyone other than the patient for history (EMS, parent, family, police, friend...)? What history was obtained from this source @ -No Did you review nursing and triage notes (agree or disagree)? Why? @ -I reviewed and agree with nursing and triage notes Were old charts reviewed (outside hosp., previous admission, EMS record, old EKG, old radiological studies, urgent care reports/EKG's, senior living records)? Report findings @ -No old charts were reviewed Differential Diagnosis (chest pain, altered mental status, abdominal pain women, abdominal pain men, vaginal bleeding, musculoskeletal, weakness, fever, dyspnea, syncope, headache, dizziness, GI bleed, back pain, seizure, CVA, palpatations, mental health)? @ - Differential Palpitations: Ventricular arrhythmias, atrial arrhythmias, myocardial infarction, anemia, thyrotoxicosis, electrolyte imbalance, hypokalemia, pulmonary embolism, pulmonary disease, drugs, alcohol, anxiety, stress.... This is not meant to be an all-inclusive list. EKG interpreted by me (3pts min.). @ -See above X-rays interpreted by me (1pt min.). @ -Chest x-ray is nonacute CT interpreted by me (1pt min.). @ -None done U/S interpreted by me (1pt. min.). @ -None done What testing was considered but not performed or refused? (CT, X-rays, U/S, labs)? Why? @ -None What meds were considered but not given or refused? Why? @ -None Was smoking cessation discussed for >3mins.? @ -No Were there social determinants of health that impacted care today? How? (Homelessness, low income, unemployed, alcoholism, drug addiction, transportation, low edu. Level, literacy, decrease access to med. care, snf, rehab)? @ -No Was there de-escalation of care discussed even if they declined (Discuss DNR or withdrawal of care, Hospice)? DNR status @ -No What co-morbidities impacted this encounter? (DM, HTN, Smoking, COPD, CAD, Cancer, CVA, ARF, Chemo, Hep., AIDS, mental health diagnosis, sleep apnea, morbid obesity)? @ -None Was patient admitted / discharged? Hospital course, mention meds given and route, prescriptions, significant lab abnormalities, going to OR and other pertinent info. @ -75-year-old female with palpitations and shortness of breath. Vital signs stable. Patient well-appearing in no acute distress. Lungs are clear to auscultation bilaterally. Laboratory evaluation obtained. Labs unremarkable including troponin D-dimer. Imaging studies nonacute. Patient reevaluated bedside at 3:10 PM found to be stable to condition. Patient had underwent extensive testing including Holter monitor and has had multiple evaluations by cardiology with no apparent issues. Told to follow-up with primary care doctor and cardiology regarding her symptoms. Patient otherwise cleared for discharge. No high risk features Did you discuss the management of the patient with other professionals (professionals i.e. , PA, DATA SYSTEMS MANAGER, lab, RT, psych nurse, addiction social worker, sales promotion manager, teacher, founder and chief technical officer, manager of case)? Give summary @ -No Was critical care preformed (if so, how long)? @ -No Undiagnosed new problem with uncertain prognosis? @ -No Drug Therapy requiring intensive monitoring for toxicity (Heparin, Nitro, Insulin, Cardizem)? @ -No Were any procedures done? @ -No Diagnosis/symptom? Acute, or Chronic, or Acute on Chronic? Uncomplicated (without systemic symptoms) or Complicated (systemic symptoms)? @ -Palpitations Side effects of treatment? @ -No Exacerbation, Progression, or Severe Exacerbation? @ -No Poses a threat to life or bodily function? How? (Chest pain, [place], [place], pneumonia, PE, COPD, DKA, ARF, appy, cholecystitis, CVA, Diverticulitis, Homicidal, Suicidal, threat to staff... and all critical care pts) @ -No - Lab Data Result diagrams: 06/05/25 13:20 06/05/25 13:20 Lab Results 06/05/25 06/05/25 06/05/25 Range/Units 13:20 13:20 13:20 WBC 5.99 (4.50-10.00) 10*3/uL RBC 3.70 L (4.10-5.20) 10*6/uL Hgb 13.2 (12.0-15.0) g/dL Hct 35.5 L (37.2-46.3) % MCV 95.9 (80.0-97.0) fL MCH 35.7 H (27.0-32.0) pg MCHC 37.2 H (32.0-37.0) g/dL Plt Count 220 (140-440) 10*3/uL MPV 9.8 (9.5-12.2) fL Immature Gran % (Auto) 0.2 % Neutrophils % 66.9 % Lymphocytes % 24.5 % Monocytes % 7.2 % Eosinophils % 0.5 % Basophils % 0.7 % Immature Gran # 0.01 (0.00-0.04) 10*3/uL Neutrophils # 4.01 (1.80-7.70) 10*3/uL Lymphocytes # 1.47 (0.90-5.00) 10*3/uL Monocytes # 0.43 (0.20-1.00) 10*3/uL Eosinophils # 0.03 L (0.04-0.35) 10*3/uL Basophils # 0.04 (0.00-0.10) 10*3/uL PT 10.0 (10.0-12.5) sec INR 0.9 (<1.2) APTT 22.3 (22.0-30.0) sec D-Dimer 0.27 (<0.60) mg/L FEU Sodium 140 (137-145) mmol/L Potassium 4.7 (3.5-5.1) mmol/L Chloride 105 (98-107) mmol/L Carbon Dioxide 27 (22-30) mmol/L Anion Gap 8 mmol/L BUN 17 (7-17) mg/dL Creatinine 0.73 (0.52-1.04) mg/dL Est GFR (CKD-EPI)AfAm >90 (>60 ml/min/1.73 sqM) Est GFR (CKD-EPI)NonAf 81 (>60 ml/min/1.73 sqM) Glucose 100 H (74-99) mg/dL Calcium 10.1 (8.4-10.2) mg/dL Magnesium 2.0 (1.6-2.3) mg/dL Total Bilirubin 1.1 (0.2-1.3) mg/dL AST 20 (14-36) U/L ALT 15 (4-34) U/L Alkaline Phosphatase 86 (38-126) U/L Troponin I (0.000-0.034) ng/mL NT-Pro-B Natriuret Pep 133 pg/mL Total Protein 7.1 (6.3-8.2) g/dL Albumin 4.6 (3.5-5.0) g/dL 06/05/25 Range/Units 13:20 WBC (4.50-10.00) 10*3/uL RBC (4.10-5.20) 10*6/uL Hgb (12.0-15.0) g/dL Hct (37.2-46.3) % MCV (80.0-97.0) fL MCH (27.0-32.0) pg MCHC (32.0-37.0) g/dL Plt Count (140-440) 10*3/uL MPV (9.5-12.2) fL Immature Gran % (Auto) % Neutrophils % % Lymphocytes % % Monocytes % % Eosinophils % % Basophils % % Immature Gran # (0.00-0.04) 10*3/uL Neutrophils # (1.80-7.70) 10*3/uL Lymphocytes # (0.90-5.00) 10*3/uL Monocytes # (0.20-1.00) 10*3/uL Eosinophils # (0.04-0.35) 10*3/uL Basophils # (0.00-0.10) 10*3/uL PT (10.0-12.5) sec INR (<1.2) APTT (22.0-30.0) sec D-Dimer (<0.60) mg/L FEU Sodium (137-145) mmol/L Potassium (3.5-5.1) mmol/L Chloride (98-107) mmol/L Carbon Dioxide (22-30) mmol/L Anion Gap mmol/L BUN (7-17) mg/dL Creatinine (0.52-1.04) mg/dL Est GFR (CKD-EPI)AfAm (>60 ml/min/1.73 sqM) Est GFR (CKD-EPI)NonAf (>60 ml/min/1.73 sqM) Glucose (74-99) mg/dL Calcium (8.4-10.2) mg/dL Magnesium (1.6-2.3) mg/dL Total Bilirubin (0.2-1.3) mg/dL AST (14-36) U/L ALT (4-34) U/L Alkaline Phosphatase (38-126) U/L Troponin I <0.012 (0.000-0.034) ng/mL NT-Pro-B Natriuret Pep pg/mL Total Protein (6.3-8.2) g/dL Albumin (3.5-5.0) g/dL Disposition Clinical Impression: Palpitations Disposition: HOME SELF-CARE Condition: Good Instructions (If sedation given, give patient instructions): Heart Palpitations (ED) Is patient prescribed a controlled substance at d/c from ED?: No Referrals: Yuri Almendarez DO [Primary Care Provider] - 1-2 days Time of Disposition: 15:08
[2025-06-05 13:57] LABS: Basophils # (A) 0.04 10*3/uL (0.00-0.10); Basophils % (A) 0.7 %; Eosinophils # (A) 0.03 10*3/uL (0.04-0.35); Eosinophils % (A) 0.5 %; HCT 35.5 % (37.2-46.3); HGB 13.2 g/dL (12.0-15.0); Lymphocytes # (A) 1.47 10*3/uL (0.90-5.00); Lymphocytes % (A) 24.5 %; MCH 35.7 pg (27.0-32.0); MCHC 37.2 g/dL (32.0-37.0); MCV 95.9 fL (80.0-97.0); Monocytes # (A) 0.43 10*3/uL (0.20-1.00); Monocytes % (A) 7.2 %; Neutrophils # (A) 4.01 10*3/uL (1.80-7.70); Neutrophils % (A) 66.9 %; Platelet Count 220 10*3/uL (140-440); RBC 3.70 10*6/uL (4.10-5.20); RDW 14.4 % (11.5-14.5); WBC 5.99 10*3/uL (4.50-10.00)
[2025-06-05 14:17] LABS: ALT 15 U/L (4-34); AST 20 U/L (14-36); African American GFR (CKD) >90 (>60 ml/min/1.73 sqM); Albumin 4.6 g/dL (3.5-5.0); Alkaline Phosphatase 86 U/L (38-126); Anion Gap 8 mmol/L; Blood Urea Nitrogen 17 mg/dL (7-17); Calcium 10.1 mg/dL (8.4-10.2); Carbon Dioxide 27 mmol/L (22-30); Chloride 105 mmol/L (98-107); Glucose 100 mg/dL (74-99); Magnesium 2.0 mg/dL (1.6-2.3); Non-African American GFR(CKD) 81 (>60 ml/min/1.73 sqM); Potassium 4.7 mmol/L (3.5-5.1); Sodium 140 mmol/L (137-145); Total Protein 7.1 g/dL (6.3-8.2)
[2025-06-05 14:19] LABS: INR 0.9 (<1.2); Partial Thromboplastin Time 22.3 sec (22.0-30.0); Prothrombin Time 10.0 sec (10.0-12.5)
--- NOTE | 2025-06-05 14:21 | XR ---
EXAMINATION TYPE: XR chest 2V DATE OF EXAM: 06/05/2025 2:18 PM COMPARISON: 11/21/2024 CLINICAL INDICATION: Female, 75 years old with history of dysrhythmia: Shortness of breath TECHNIQUE: XR chest 2V views of the chest are obtained. FINDINGS: Scattered senescent parenchymal changes noted. Hyperinflation compatible with COPD. No evidence for infiltrate. No evidence for atelectasis. Heart size is stable. Mediastinal structures are stable and grossly unremarkable. No evidence for hilar prominence. Degenerative changes dorsal spine. IMPRESSION: 1. No evidence for acute pulmonary disease. [facility], , 06/05/2025 2:19 PM
[2025-06-05 14:26] LABS: NT-Pro-B-Type Natriuretic Pept 133 pg/mL
[2025-06-05 15:02] VITALS: RESP 16
[2025-06-05 15:21] VITALS: BP 150/95; PULSE 65
== END 2025-06-05 15:20 | disposition home or self-care (01) ==
LOC: EC 13:12
DX: R00.2 Palpitations (principal); Z88.1 Allergy status to other antibiotic agents; Z88.8 Allergy status to other drugs, medicaments and biological substances; Z88.5 Allergy status to narcotic agent
CPT/HCPCS: 36415; 71046; 80053; 83735; 83880; 84484; 85025; 85379; 85610; 85730; 93005; 99285